=== PATIENT | female | born 1950 | race Caucasian/White ===

== ENCOUNTER 2019-12-25 09:13 | Outpatient (REF) | payer MEDICARE, MEDICAID, SELFPAY ==
--- NOTE | 2019-12-25 09:19 | MM_ITS ---
EXAMINATION: MM DIAGNOSTIC DIGITAL MAMMOGRAPHY, BILATERAL CLINICAL INFORMATION: Right breast calcifications. Left breast screening The lifetime risk of breast cancer based on the Tyrer-Cuzick Model is 5.5%. COMPARISON: Mammography: June 26, 2019 and studies dating back to December 04, 2013 TECHNIQUE: Digital mammography is performed in craniocaudal and mediolateral oblique views along with computer-aided detection (CAD). Additional right breast spot medication views in craniocaudal and 90 degree mediolateral views performed. FINDINGS: The breasts are heterogeneously dense, which may obscure small masses (ACR BI-RADS breast composition Category c). Grouping of calcifications within the central lateral aspect of the right breast appears unchanged. No new suspicious dominant mass appreciated. There are no significant changes from prior study. Results are provided to the patient at time of visit by the technologist. MM/MM diagnostic mammo BI IMPRESSION: There are no significant changes from prior study. ASSESSMENT: BI-RADS 3: Probably Benign RECOMMENDATION: Diagnostic mammography in 6 months for right breast calcifications.. This patient's information was entered into a reminder system with a target due date for their next mammogram.
== END 2019-12-25 09:14 | disposition home or self-care (01) ==
LOC: HO.MAMMO 09:13
PROVIDERS: PCP Internal Medicine; Visit Provider Internal Medicine
DX: R92.1 Mammographic calcification found on diagnostic imaging of breast (principal)
CPT/HCPCS: 77066

== ENCOUNTER → 2019-12-27 09:05 | Outpatient (BNVA) | payer MEDICARE, MEDICAID, SELFPAY | PROVIDERS: PCP Internal Medicine; Referring Provider Internal Medicine; Visit Provider Obstetrics & Gynecology | DX: Z76.89 Persons encountering health services in other specified circumstances (principal) ==

== ENCOUNTER → 2020-01-25 09:13 | Outpatient (BNVA) | payer MEDICARE, MEDICAID, SELFPAY | PROVIDERS: PCP Internal Medicine; Visit Provider Student in an Organized Health Care Education/Training Program | DX: M81.0 Age-related osteoporosis without current pathological fracture (principal) | CPT/HCPCS: 96402 ==

== ENCOUNTER 2020-05-09 08:19 | Outpatient (REF) | payer MEDICARE, MEDICAID, SELFPAY ==
--- NOTE | ~2020-05-09 | XR_ITS ---
EXAMINATION: RIGHT KNEE. LEFT KNEE. RIGHT FEMUR. LEFT FEMUR. CLINICAL INFORMATION: Age-related osteoporosis without current pathological fracture. COMPARISON: None. TECHNIQUE: AP and lateral views of both femurs. [place] and lateral views of both knees. FINDINGS: Right Femur: There is no evidence of acute fracture or dislocation of the right femur. No destructive bony lesions are seen. Right hip joint spaces maintained. Right Knee: There is no evidence of acute fracture or dislocation of the right knee. Right knee joint spaces are maintained. No effusion. Mild spurring patellofemoral joint is seen. Small spur site of insertion of the quadriceps tendon on the patella. Left Femur: There is no evidence of acute fracture or dislocation of the left femur. No destructive bony lesions identified. Left hip joint space is maintained. Left Knee: There is no evidence of acute fracture or dislocation of the left knee. Joint space is maintained. No effusion. XR/XR femur RT 2V IMPRESSION: No significant destructive or degenerative abnormality of either femur or either knee.
--- NOTE | ~2020-05-09 | XR_ITS ---
EXAMINATION: RIGHT KNEE. LEFT KNEE. RIGHT FEMUR. LEFT FEMUR. CLINICAL INFORMATION: Age-related osteoporosis without current pathological fracture. COMPARISON: None. TECHNIQUE: AP and lateral views of both femurs. [place] and lateral views of both knees. FINDINGS: Right Femur: There is no evidence of acute fracture or dislocation of the right femur. No destructive bony lesions are seen. Right hip joint spaces maintained. Right Knee: There is no evidence of acute fracture or dislocation of the right knee. Right knee joint spaces are maintained. No effusion. Mild spurring patellofemoral joint is seen. Small spur site of insertion of the quadriceps tendon on the patella. Left Femur: There is no evidence of acute fracture or dislocation of the left femur. No destructive bony lesions identified. Left hip joint space is maintained. Left Knee: There is no evidence of acute fracture or dislocation of the left knee. Joint space is maintained. No effusion. XR/XR knee LT 3V IMPRESSION: No significant destructive or degenerative abnormality of either femur or either knee.
--- NOTE | ~2020-05-09 | XR_ITS ---
EXAMINATION: RIGHT KNEE. LEFT KNEE. RIGHT FEMUR. LEFT FEMUR. CLINICAL INFORMATION: Age-related osteoporosis without current pathological fracture. COMPARISON: None. TECHNIQUE: AP and lateral views of both femurs. [place] and lateral views of both knees. FINDINGS: Right Femur: There is no evidence of acute fracture or dislocation of the right femur. No destructive bony lesions are seen. Right hip joint spaces maintained. Right Knee: There is no evidence of acute fracture or dislocation of the right knee. Right knee joint spaces are maintained. No effusion. Mild spurring patellofemoral joint is seen. Small spur site of insertion of the quadriceps tendon on the patella. Left Femur: There is no evidence of acute fracture or dislocation of the left femur. No destructive bony lesions identified. Left hip joint space is maintained. Left Knee: There is no evidence of acute fracture or dislocation of the left knee. Joint space is maintained. No effusion. XR/XR knee RT 3V IMPRESSION: No significant destructive or degenerative abnormality of either femur or either knee.
--- NOTE | ~2020-05-09 | XR_ITS ---
EXAMINATION: RIGHT KNEE. LEFT KNEE. RIGHT FEMUR. LEFT FEMUR. CLINICAL INFORMATION: Age-related osteoporosis without current pathological fracture. COMPARISON: None. TECHNIQUE: AP and lateral views of both femurs. [place] and lateral views of both knees. FINDINGS: Right Femur: There is no evidence of acute fracture or dislocation of the right femur. No destructive bony lesions are seen. Right hip joint spaces maintained. Right Knee: There is no evidence of acute fracture or dislocation of the right knee. Right knee joint spaces are maintained. No effusion. Mild spurring patellofemoral joint is seen. Small spur site of insertion of the quadriceps tendon on the patella. Left Femur: There is no evidence of acute fracture or dislocation of the left femur. No destructive bony lesions identified. Left hip joint space is maintained. Left Knee: There is no evidence of acute fracture or dislocation of the left knee. Joint space is maintained. No effusion. XR/XR femur LT 2V IMPRESSION: No significant destructive or degenerative abnormality of either femur or either knee.
== END 2020-05-09 08:20 | disposition home or self-care (01) ==
LOC: HO.XRAY 08:19
PROVIDERS: PCP Internal Medicine; Visit Provider Student in an Organized Health Care Education/Training Program
DX: M81.0 Age-related osteoporosis without current pathological fracture (principal)
CPT/HCPCS: 73552; 73562

== ENCOUNTER 2020-06-07 07:29 | Outpatient (REF) | payer MEDICARE, MEDICAID, SELFPAY ==
[2020-06-07 09:44] LABS: Alanine Aminotransferase 17 U/L (0-31); Albumin Level 4.6 g/dL (3.5-5.0); Alkaline Phosphatase 59 U/L (39-117); Anion Gap 15 (12-20); Aspartate Amino Transferase 25 U/L (5-31); Blood Urea Nitrogen 10 mg/dL (9-16); C Reactive Protein 0.05 mg/dL (< or = 0.50); Calcium 9.6 mg/dL (8.4-10.2); Carbon Dioxide 26 mmol/L (22-29); Chloride 104 mmol/L (96-108); Estimated Glomerular Filt Rate > 60; Glucose Random 86 mg/dL (60-115); Potassium 4.6 mmol/L (3.3-5.1); Sodium 140 mmol/L (135-145); Total Protein 7.6 g/dL (6.5-8.0)
[2020-06-07 10:07] LABS: Erythrocyte Sedimentation Rate 10 MM/HR (0-20)
[2020-06-12 20:57] LABS: Vitamin D 25-OH, D2 7 ng/mL; Vitamin D 25-OH, D3 47 ng/mL; Vitamin D 25-OH, Total 54 ng/mL (30-100)
== END 2020-06-07 07:30 | disposition home or self-care (01) ==
LOC: HO.LAB 07:29
PROVIDERS: PCP Internal Medicine; Visit Provider Student in an Organized Health Care Education/Training Program
DX: M81.0 Age-related osteoporosis without current pathological fracture (principal); Z79.899 Other long term (current) drug therapy
CPT/HCPCS: 36415; 80053; 82306; 85652; 86140; 99212

== ENCOUNTER 2020-06-18 10:30 | Outpatient (REF) | payer MEDICARE, MEDICAID, SELFPAY ==
--- NOTE | ~2020-06-18 | MM_ITS ---
EXAMINATION: MM DIAGNOSTIC DIGITAL BREAST TOMOSYNTHESIS, RIGHT CLINICAL INFORMATION: Probable benign calcifications central 8:30 o'clock right breast for follow-up surveillance. No known family history breast cancer. TC score 4%. COMPARISON: Mammography: 12/25/2019, 06/26/2019, 12/26/2018, 12/22/2018 (BI-RADS 0), 12/13/2017. TECHNIQUE: Digital breast tomosynthesis is performed in both the craniocaudal and mediolateral oblique views along with computer-aided detection (CAD). Synthesized 2D images are generated from the tomosynthesis. Additional magnification views are obtained in the CC and ML projections. FINDINGS: The breasts are heterogeneously dense, which may obscure small masses (ACR BI-RADS breast composition Category c). Parenchymal pattern is similar to prior exams. There is no developing density or interval mass or architectural abnormality. The calcifications for follow-up central 8:30 o'clock position mid depth are stable from prior diagnostic exams. Calcifications will be reassessed again with magnification views at time of annual bilateral mammography to conclude long-term surveillance. Results are provided to the patient at time of visit by the technologist. MM/MM tomosynthesis diagnostic RT IMPRESSION: The probable benign calcifications mid right breast are stable from prior diagnostic exams. ASSESSMENT: BI-RADS 3: Probably Benign RECOMMENDATION: Diagnostic mammography at time of bilateral annual exam, due in 6 months. This patient's information was entered into a reminder system with a target due date for their next mammogram.
== END 2020-06-18 10:31 | disposition home or self-care (01) ==
LOC: HO.MAMMO 10:30
PROVIDERS: Visit Provider Internal Medicine
DX: R92.1 Mammographic calcification found on diagnostic imaging of breast (principal)
CPT/HCPCS: 77061; 77065

== ENCOUNTER → 2020-07-25 08:28 | Outpatient (BNVA) | payer MEDICARE, MEDICAID, SELFPAY | PROVIDERS: PCP Internal Medicine; Visit Provider Student in an Organized Health Care Education/Training Program | DX: M81.0 Age-related osteoporosis without current pathological fracture (principal) | CPT/HCPCS: 96372 ==

== ENCOUNTER 2020-10-02 06:12 | Outpatient (REF) | payer MEDICARE, MEDICAID, SELFPAY ==
[2020-10-02 07:06] LABS: MANUAL DIFF FLAG NO
[2020-10-02 07:15] LABS: Basophils Absolute Auto 0.1 X10*3/uL (0.0-0.2); Basophils Percent Auto 0.9 % (0-2); Eosinophils Absolute Auto 0.2 X10*3/uL (0.0-0.4); Eosinophils Percent Auto 2.7 % (0-4); Hematocrit 38.1 % (37-47); Hemoglobin 12.5 g/dl (12.0-16.0); Imm Gran Abs Auto 0.02 X10*3/uL (0.00-0.03); Imm Gran Pct Auto 0.3 % (0.0-0.4); Lymphocytes Absolute Auto 1.3 X10*3/uL (1.2-4.9); Lymphocytes Percent Auto 22.5 % (20-40); Mean Corpuscular HGB Conc 32.8 g/dl (31.0-35.0); Mean Corpuscular Hemoglobin 31.6 pg (27.0-33.0); Mean Corpuscular Volume 96.5 fL (80-98); Monocytes Absolute Auto 0.6 X10*3/uL (0.1-1.2); Monocytes Percent Auto 10.8 % (2-11); Neutrophils Absolute Auto 3.7 X10*3/uL (2.0-8.3); Neutrophils Percent Auto 62.8 % (45-73); Platelet Count 247 X10*3/uL (160-400); Red Blood Count 3.95 X10*6/uL (4.20-5.50); Red Cell Distribution Width 12.6 % (11.0-16.0); White Blood Count 5.8 X10*3/uL (4.8-10.8)
[2020-10-02 07:39] LABS: Alanine Aminotransferase 18 U/L (0-31); Albumin Level 4.7 g/dL (3.5-5.0); Alkaline Phosphatase 57 U/L (39-117); Anion Gap 11 (12-20); Aspartate Amino Transferase 24 U/L (5-31); Bilirubin Total 0.8 mg/dL (0.0-1.0); Blood Urea Nitrogen 9 mg/dL (9-16); Calcium 9.6 mg/dL (8.4-10.2); Carbon Dioxide 29 mmol/L (22-29); Chloride 102 mmol/L (96-108); Cholesterol 159 mg/dL; Estimated Glomerular Filt Rate > 60; Glucose Fasting 87 mg/dL (60-99); HDL Cholesterol 71 mg/dL; LDL Cholesterol Calculated 70 mg/dl; Potassium 4.1 mmol/L (3.3-5.1); Sodium 138 mmol/L (135-145); Total Protein 7.6 g/dL (6.5-8.0); Triglycerides 91 mg/dL
[2020-10-02 09:01] LABS: Glucose Urine UA NEG (NEG); Leukocyte Esterase Urine NEG (NEG); Nitrite Urine NEG (NEG); PH 6.5 (5.0-8.0); Specific Gravity - Urine <= 1.005 (1.005-1.025); UACC Culture Trigger NO; Urine Blood TRACE (NEG); Urine Ketones NEG (NEG); Urine Protein NEG (NEG-TRACE)
[2020-10-02 09:04] LABS: Appearance Urine CLEAR; Color Urine STRAW
[2020-10-02 09:15] LABS: RBC Urine 0-2 /HPF (0); Squamous Epithelial Cell Urine TRACE /LPF; WBC Urine 0 /HPF (0-4)
== END 2020-10-02 06:13 | disposition home or self-care (01) ==
LOC: HO.LAB 06:12
PROVIDERS: PCP Internal Medicine; Visit Provider Internal Medicine
DX: E78.00 Pure hypercholesterolemia, unspecified (principal); K57.90 Diverticulosis of intestine, part unspecified, without perforation or abscess without bleeding; N32.81 Overactive bladder
CPT/HCPCS: 36415; 80053; 80061; 81001; 81003; 85025; 87086

== ENCOUNTER → 2020-11-21 10:40 | Outpatient (BNVA) | payer MEDICARE, MEDICAID, SELFPAY | DX: R32 Unspecified urinary incontinence (principal) | CPT/HCPCS: 51798; 99212 ==

== ENCOUNTER 2020-12-04 08:41 | Outpatient (REF) | payer MEDICARE, MEDICAID, SELFPAY ==
[2020-12-04 10:49] LABS: Alanine Aminotransferase 20 U/L (0-31); Albumin Level 4.8 g/dL (3.5-5.0); Alkaline Phosphatase 62 U/L (39-117); Anion Gap 16 (12-20); Aspartate Amino Transferase 25 U/L (5-31); Bilirubin Total 0.8 mg/dL (0.0-1.0); Blood Urea Nitrogen 10 mg/dL (9-16); Carbon Dioxide 25 mmol/L (22-29); Chloride 102 mmol/L (96-108); Estimated Glomerular Filt Rate > 60; Glucose Random 85 mg/dL (60-115); Potassium 4.4 mmol/L (3.3-5.1); Sodium 139 mmol/L (135-145); Total Protein 7.9 g/dL (6.5-8.0)
[2020-12-04 11:05] LABS: Calcium 10.7 mg/dL (8.4-10.2); Vitamin D 25-OH Total 45.8 ng/mL (>30)
== END 2020-12-04 08:42 | disposition home or self-care (01) ==
LOC: HO.LAB 08:41
PROVIDERS: PCP Internal Medicine; Visit Provider Nurse Practitioner Family
DX: M81.0 Age-related osteoporosis without current pathological fracture (principal)
CPT/HCPCS: 36415; 80053; 82306; 99212

== ENCOUNTER 2020-12-09 09:50 | Outpatient (REF) | payer MEDICARE, MEDICAID, SELFPAY ==
[2020-12-10 14:31] LABS: Calcium (PTHI) 9.7 mg/dL (8.6-10.4); PTHI 49 pg/mL (14-64)
== END 2020-12-09 09:51 | disposition home or self-care (01) ==
LOC: HO.LAB 09:50
PROVIDERS: Visit Provider Nurse Practitioner Family
DX: M81.0 Age-related osteoporosis without current pathological fracture (principal)
CPT/HCPCS: 36415; 82310; 83970

== ENCOUNTER 2020-12-23 08:38 | Outpatient (REF) | payer MEDICARE, MEDICAID, SELFPAY ==
--- NOTE | ~2020-12-23 | MM_ITS ---
EXAMINATION: MM DIAGNOSTIC DIGITAL BREAST TOMOSYNTHESIS, BILATERAL CLINICAL INFORMATION: Due for yearly. Also follow-up probable benign calcifications central 8:30 right breast, initially noted on mammography 12/22/2018. The lifetime risk of breast cancer based on the Tyrer-Cuzick Model is 6%. COMPARISON: Mammography: 06/18/2020 and prior exams dating back to 12/04/2013 TECHNIQUE: Digital breast tomosynthesis is performed in both the craniocaudal and mediolateral oblique views along with computer-aided detection (CAD). Synthesized 2D images are generated from the tomosynthesis. Additional magnification right CC and magnification right ML views are provided. FINDINGS: The breasts are heterogeneously dense, which may obscure small masses (ACR BI-RADS breast composition Category c). Parenchymal pattern is similar to prior studies. There are scattered stable asymmetries and minor shifting fibroglandular densities from year to year. No developing density or interval mass or architectural abnormality. The calcifications for follow-up central mid outer right breast are without significant change from prior diagnostic exams and now considered to be benign. Results are provided to the patient at time of visit by the technologist. MM/MM tomosynthesis diagnostic BI IMPRESSION: 1. No mammographic evidence of malignancy. 2. Right breast calcifications without significant changes from prior diagnostic exams and now considered to be benign. ASSESSMENT: BI-RADS 2: Benign RECOMMENDATION: Routine annual mammography screening. This patient's information was entered into a reminder system with a target due date for their next mammogram.
== END 2020-12-23 08:39 | disposition home or self-care (01) ==
LOC: HO.MAMMO 08:38
PROVIDERS: Visit Provider Internal Medicine
DX: R92.1 Mammographic calcification found on diagnostic imaging of breast (principal)
CPT/HCPCS: 77062; 77066

== ENCOUNTER → 2020-12-31 08:39 | Outpatient (BNVA) | payer MEDICARE, MEDICAID, SELFPAY | PROVIDERS: PCP Internal Medicine; Visit Provider Obstetrics & Gynecology ==

== ENCOUNTER → 2021-01-24 08:48 | Outpatient (BNVA) | payer MEDICARE, MEDICAID, SELFPAY | PROVIDERS: PCP Internal Medicine; Visit Provider Student in an Organized Health Care Education/Training Program | DX: M81.0 Age-related osteoporosis without current pathological fracture (principal) | CPT/HCPCS: 96372 ==

== ENCOUNTER → 2021-05-22 08:57 | Outpatient (BNVA) | payer MEDICARE, MEDICAID, SELFPAY | PROVIDERS: PCP Internal Medicine | DX: R32 Unspecified urinary incontinence (principal) | CPT/HCPCS: 51798; 99212 ==

== ENCOUNTER 2021-06-03 07:42 | Outpatient (REF) | payer MEDICARE, MEDICAID, SELFPAY ==
--- NOTE | ~2021-06-03 | MM_ITS ---
EXAMINATION: BONE DENSITOMETRY CLINICAL INDICATION: Osteoporosis. COMPARISON: Previous BD dated 12/22/2018 and baseline BD dated 12/13/2006. TECHNIQUE: Using a [employer] DXA System (software version: 13.1) manufactured by [employer], dual-energy x-ray absorptiometry was performed of the lumbar spine and left hip. The images are of good technical quality. Summary results are attached. FINDINGS: AP SPINE L1-L4: Current: BMD 0.847 g/cm2, Z-score -0.7, T-score -2.8, osteoporosis, 6.3% increase from previous, 9.5% decrease from baseline (<5% change is not significant). Prior: BMD 0.797 g/cm2. Baseline: BMD 0.936 g/cm2. LEFT FEMUR, NECK: Current: BMD 0.649 g/cm2, Z-score -0.9, T-score -2.8, osteoporosis. Prior: BMD 0.579 g/cm2. Baseline: BMD 0.714 g/cm2. LEFT FEMUR, TOTAL: Current: BMD 0.654 g/cm2, Z-score -1.1, T-score -2.8, osteoporosis, 5.5% increase from previous, 12.9% decrease from baseline (<5% change is not significant). Prior: BMD 0.620 g/cm2. Baseline: BMD 0.751 g/cm2. IDENTIFIED RISK FACTORS: Menopause, osteoporosis, renal. HISTORY OF FRACTURE: None listed. MEDICATIONS: Calcium, vitamin D, Prolia. MM/XR DEXA axial skeleton IMPRESSION: 1. DIAGNOSIS: Osteoporosis based on the lowest T-score value of -2.8 in the lumbar spine, femur neck, and total femur applying World Health Organization criteria. 2. 10-YEAR FRACTURE RISK PREDICTION, FRAX: According to the guidelines, FRAX calculation should only be performed on patients in the osteopenia bone density category. Therefore, FRAX was not performed on this patient. 3. Treatment Recommendations: NOF guidelines recommend consideration for treatment in postmenopausal women and men age 50 and older presenting with the following: -A hip or vertebral (clinical or morphometric) fracture. -T-score less than or equal to -2.5 at the femoral neck or spine after appropriate evaluation to exclude secondary causes. -Low bone mass at the hip or spine and a 10-year fracture probability by FRAX of greater than or equal to 3% for hip fracture or greater than or equal to 20% for major osteoporotic fracture based on the [place] adapted WHO algorithm. 4. Other Recommendations: All treatment decisions require clinical judgment and consideration of individual patient factors, including patient preferences, comorbidities, previous drug use, risk factors not captured in the FRAX model (e.g. frailty, falls, vitamin D deficiency, increased bone turnover, interval significant decline in bone density) and possible under or overestimation of fracture risk by FRAX. Additional medical evaluation for secondary cause of low bone mineral density may be appropriate. FUTURE SCAN RECOMMENDATION: People with diagnosed cases of osteoporosis or at high risk for fracture should have regular bone mineral density tests. For patients eligible for Medicare, routine testing is allowed once every 2 years. The testing frequency can be increased to one year for patients who have rapidly progressing disease, those who are receiving or discontinuing medical therapy to restore bone mass, or have additional risk factors.
== END 2021-06-03 07:43 | disposition home or self-care (01) ==
LOC: HO.MAMMO 07:42
PROVIDERS: PCP Internal Medicine; Visit Provider Nurse Practitioner Family
DX: Z13.820 Encounter for screening for osteoporosis (principal); M81.0 Age-related osteoporosis without current pathological fracture; Z78.0 Asymptomatic menopausal state
CPT/HCPCS: 77080

== ENCOUNTER → 2021-06-09 08:44 | Outpatient (BNVA) | payer MEDICARE, MEDICAID, SELFPAY | PROVIDERS: PCP Internal Medicine; Visit Provider Nurse Practitioner Family | DX: M81.0 Age-related osteoporosis without current pathological fracture (principal) | CPT/HCPCS: 99212 ==

== ENCOUNTER 2021-06-16 06:12 | Outpatient (REF) | payer MEDICARE, MEDICAID, SELFPAY ==
[2021-06-16 08:07] LABS: Alanine Aminotransferase 14 U/L (0-31); Albumin Level 4.5 g/dL (3.5-5.0); Alkaline Phosphatase 61 U/L (39-117); Anion Gap 12 (12-20); Aspartate Amino Transferase 22 U/L (5-31); Bilirubin Total 1.1 mg/dL (0.0-1.0); Blood Urea Nitrogen 11 mg/dL (9-16); Calcium 9.8 mg/dL (8.4-10.2); Carbon Dioxide 28 mmol/L (22-29); Chloride 105 mmol/L (96-108); Estimated Glomerular Filt Rate > 60; Glucose Random 87 mg/dL (60-115); Potassium 4.3 mmol/L (3.3-5.1); Sodium 141 mmol/L (135-145); Total Protein 7.7 g/dL (6.5-8.0)
[2021-06-16 08:34] LABS: Vitamin D 25-OH Total 42.2 ng/mL (>30)
== END 2021-06-16 06:13 | disposition home or self-care (01) ==
LOC: HO.LAB 06:12
PROVIDERS: PCP Internal Medicine; Visit Provider Nurse Practitioner Family
DX: M81.0 Age-related osteoporosis without current pathological fracture (principal)
CPT/HCPCS: 36415; 80053; 82306

== ENCOUNTER → 2021-07-28 08:40 | Outpatient (BNVA) | payer MEDICARE, MEDICAID, SELFPAY | PROVIDERS: PCP Internal Medicine; Visit Provider Nurse Practitioner Family | DX: M81.0 Age-related osteoporosis without current pathological fracture (principal) | CPT/HCPCS: 96372 ==

== ENCOUNTER 2021-11-05 06:03 | Outpatient (REF) | payer MEDICARE, MEDICAID, SELFPAY ==
[2021-11-05 06:24] LABS: MANUAL DIFF FLAG NO
[2021-11-05 07:42] LABS: Basophils Percent Auto 0.6 % (0-2); Eosinophils Absolute Auto 0.1 X10*3/uL (0.0-0.4); Eosinophils Percent Auto 1.9 % (0-4); Hematocrit 38.5 % (37.0-47.0); Hemoglobin 12.8 g/dl (12.0-16.0); Imm Gran Abs Auto 0.02 X10*3/uL (0.00-0.03); Imm Gran Pct Auto 0.3 % (0.0-0.4); Lymphocytes Absolute Auto 1.6 X10*3/uL (1.2-4.9); Lymphocytes Percent Auto 25.2 % (20-40); Mean Corpuscular HGB Conc 33.2 g/dl (31.0-35.0); Mean Corpuscular Hemoglobin 31.4 pg (27.0-33.0); Mean Corpuscular Volume 94.6 fL (80.0-98.0); Mean Platelet Volume 10.1 fL (9.4-12.3); Monocytes Absolute Auto 0.6 X10*3/uL (0.1-1.2); Monocytes Percent Auto 10.1 % (2-11); Neutrophils Absolute Auto 3.9 x10*3/uL (2.0-8.3); Neutrophils Percent Auto 61.9 % (45-73); Platelet Count 248 X10*3/uL (160-400); Red Blood Count 4.07 X10*6/uL (4.20-5.50); Red Cell Distribution Width 12.9 % (11.0-16.0); White Blood Count 6.4 X10*3/uL (4.8-10.8)
[2021-11-05 08:04] LABS: Alanine Aminotransferase 19 U/L (0-31); Albumin Level 4.6 g/dL (3.5-5.0); Alkaline Phosphatase 64 U/L (39-117); Anion Gap 16 (12-20); Aspartate Amino Transferase 23 U/L (5-31); Blood Urea Nitrogen 12 mg/dL (9-16); Calcium 9.8 mg/dL (8.4-10.2); Carbon Dioxide 25 mmol/L (22-29); Chloride 103 mmol/L (96-108); Cholesterol 173 mg/dL; Estimated Glomerular Filt Rate > 60; Glucose Fasting 84 mg/dL (60-99); HDL Cholesterol 69 mg/dL; LDL Cholesterol Calculated 87 mg/dl; Potassium 4.4 mmol/L (3.3-5.1); Sodium 140 mmol/L (135-145); Total Protein 7.6 g/dL (6.5-8.0); Triglycerides 87 mg/dL
[2021-11-05 08:16] LABS: Vitamin D 25-OH Total 48.4 ng/mL (>30)
== END 2021-11-05 06:04 | disposition home or self-care (01) ==
LOC: HO.LAB 06:03
PROVIDERS: PCP Internal Medicine; Visit Provider Internal Medicine
DX: E78.00 Pure hypercholesterolemia, unspecified (principal); K57.90 Diverticulosis of intestine, part unspecified, without perforation or abscess without bleeding; M81.0 Age-related osteoporosis without current pathological fracture
CPT/HCPCS: 36415; 80053; 80061; 82306; 85025

== ENCOUNTER → 2021-12-09 09:08 | Outpatient (BNVA) | payer MEDICARE, MEDICAID, SELFPAY | PROVIDERS: PCP Internal Medicine; Visit Provider Nurse Practitioner Family | DX: M81.0 Age-related osteoporosis without current pathological fracture (principal) | CPT/HCPCS: 99212 ==

== ENCOUNTER 2021-12-29 07:47 | Outpatient (REF) | payer MEDICARE, MEDICAID, SELFPAY ==
--- NOTE | ~2021-12-29 | MM_ITS ---
EXAMINATION: MM SCREENING DIGITAL BREAST TOMOSYNTHESIS, BILATERAL CLINICAL INFORMATION: Screening. Asymptomatic. COMPARISON: Mammography: 12/23/2020, 06/18/2020, 12/25/2019, 06/26/2019, 12/26/2018, 12/22/2018 TECHNIQUE: Digital breast tomosynthesis is performed in both the craniocaudal and mediolateral oblique views along with computer-aided detection (CAD). Synthesized 2D images are generated from the tomosynthesis. FINDINGS: The breasts are heterogeneously dense, which may obscure small masses (ACR BI-RADS breast composition Category c). Parenchymal pattern is similar to prior studies and there is no developing density or interval mass or architectural abnormality. No interval suspicious calcifications. The axilla and skin contours are unremarkable. There are no significant changes from prior studies. MM/MM tomosynthesis screening BI IMPRESSION: No mammographic evidence of malignancy. ASSESSMENT: BI-RADS 2: Benign RECOMMENDATION: Routine annual mammography screening. This patient's information was entered into a reminder system with a target due date for their next mammogram.
[2021-12-29 09:38] LABS: Alanine Aminotransferase 19 U/L (0-31); Albumin Level 4.7 g/dL (3.5-5.0); Alkaline Phosphatase 66 U/L (39-117); Anion Gap 14 (12-20); Aspartate Amino Transferase 22 U/L (5-31); Bilirubin Total 0.6 mg/dL (0.0-1.0); Blood Urea Nitrogen 10 mg/dL (9-16); Calcium 9.7 mg/dL (8.4-10.2); Carbon Dioxide 27 mmol/L (22-29); Chloride 105 mmol/L (96-108); Estimated Glomerular Filt Rate > 60; Glucose Random 93 mg/dL (60-115); Potassium 4.3 mmol/L (3.3-5.1); Sodium 142 mmol/L (135-145); Total Protein 7.6 g/dL (6.5-8.0); Vitamin D 25-OH Total 63.5 ng/mL (>30)
== END 2021-12-29 07:48 | disposition home or self-care (01) ==
LOC: HO.MAMMO 07:47
PROVIDERS: Absent Provider Nurse Practitioner Family; PCP Internal Medicine; Visit Provider Internal Medicine
DX: Z12.31 Encounter for screening mammogram for malignant neoplasm of breast (principal); M81.0 Age-related osteoporosis without current pathological fracture
CPT/HCPCS: 36415; 77063; 77067; 80053; 82306

== ENCOUNTER 2022-01-01 08:45 | Outpatient (REF) | payer MEDICARE, MEDICAID, SELFPAY ==
[2022-01-07 21:41] LABS: HPV mRNA E6/E7 rflx Not Detected (Not Detected)
== END 2022-01-01 08:46 | disposition home or self-care (01) ==
LOC: HO.LNP 08:45
PROVIDERS: Visit Provider Obstetrics & Gynecology
DX: Z01.419 Encounter for gynecological examination (general) (routine) without abnormal findings (principal)
CPT/HCPCS: 87624; 88142

== ENCOUNTER → 2022-01-27 08:37 | Outpatient (BNVA) | payer MEDICARE, MEDICAID, SELFPAY | PROVIDERS: PCP Internal Medicine; Referring Provider Internal Medicine; Visit Provider Nurse Practitioner Family | DX: M81.0 Age-related osteoporosis without current pathological fracture (principal); Z79.899 Other long term (current) drug therapy | CPT/HCPCS: 96372 ==

== ENCOUNTER → 2022-05-25 09:06 | Outpatient (BNVA) | payer MEDICARE, MEDICAID, SELFPAY | PROVIDERS: PCP Internal Medicine; Visit Provider Urology | DX: N32.81 Overactive bladder (principal); R35.1 Nocturia; R31.29 Other microscopic hematuria | CPT/HCPCS: 51798; 99212 ==

== ENCOUNTER → 2022-06-09 08:43 | Outpatient (BNVA) | payer MEDICARE, MEDICAID, SELFPAY | PROVIDERS: PCP Internal Medicine; Visit Provider Nurse Practitioner Family | DX: M81.0 Age-related osteoporosis without current pathological fracture (principal) | CPT/HCPCS: 99212 ==

== ENCOUNTER 2022-07-08 06:03 | Outpatient (REF) | payer MEDICARE, MEDICAID, SELFPAY ==
[2022-07-08 08:29] LABS: Anion Gap 12 (12-20); Blood Urea Nitrogen 12 mg/dL (9-16); Calcium 9.9 mg/dL (8.4-10.2); Carbon Dioxide 29 mmol/L (22-29); Chloride 106 mmol/L (96-108); Estimated Glomerular Filt Rate > 60; Glucose Random 90 mg/dL (60-115); Potassium 4.3 mmol/L (3.3-5.1); Sodium 143 mmol/L (135-145)
[2022-07-08 08:35] LABS: Alanine Aminotransferase 18 U/L (0-31); Albumin Level 4.6 g/dL (3.5-5.0); Alkaline Phosphatase 65 U/L (39-117); Anion Gap 11 (12-20); Aspartate Amino Transferase 23 U/L (5-31); Bilirubin Total 1.2 mg/dL (0.0-1.0); Blood Urea Nitrogen 12 mg/dL (9-16); Calcium 9.8 mg/dL (8.4-10.2); Carbon Dioxide 30 mmol/L (22-29); Chloride 105 mmol/L (96-108); Estimated Glomerular Filt Rate > 60; Glucose Random 88 mg/dL (60-115); Potassium 3.9 mmol/L (3.3-5.1); Sodium 142 mmol/L (135-145); Total Protein 7.6 g/dL (6.5-8.0)
[2022-07-08 08:52] LABS: Vitamin D 25-OH Total 52.5 ng/mL (>30)
[2022-07-08 08:55] LABS: Thyroid Stimulating Hormone 1.81 uIU/mL (0.32-4.0); Vitamin B12 522 pg/mL (200-900); Vitamin D 25-OH Total 54.9 ng/mL (>30)
== END 2022-07-08 06:04 | disposition home or self-care (01) ==
LOC: HO.LAB 06:03
PROVIDERS: Absent Provider Internal Medicine; PCP Internal Medicine; Visit Provider Nurse Practitioner Family
DX: R26.81 Unsteadiness on feet (principal); M81.0 Age-related osteoporosis without current pathological fracture; R53.83 Other fatigue
CPT/HCPCS: 36415; 80048; 80053; 82306; 82607; 84439; 84443

== ENCOUNTER → 2022-07-24 08:55 | Outpatient (BNVA) | payer MEDICARE, MEDICAID, SELFPAY | PROVIDERS: PCP Internal Medicine; Visit Provider Urology | DX: R31.29 Other microscopic hematuria (principal); N32.81 Overactive bladder; N39.41 Urge incontinence | CPT/HCPCS: 52000 ==

== ENCOUNTER → 2022-07-28 08:38 | Outpatient (BNVA) | payer MEDICARE, MEDICAID, SELFPAY | PROVIDERS: PCP Internal Medicine; Visit Provider Nurse Practitioner Family | DX: M81.0 Age-related osteoporosis without current pathological fracture (principal) | CPT/HCPCS: 96372; J0897 ==

== ENCOUNTER 2022-10-16 06:01 | Outpatient (REF) | payer MEDICARE, MEDICAID, SELFPAY ==
[2022-10-16 06:12] LABS: MANUAL DIFF FLAG NO
[2022-10-16 07:41] LABS: Basophils Percent Auto 0.7 % (0-2); Eosinophils Absolute Auto 0.1 X10*3/uL (0.0-0.4); Eosinophils Percent Auto 2.1 % (0-4); Hematocrit 38.2 % (37.0-47.0); Hemoglobin 12.7 g/dl (12.0-16.0); Imm Gran Abs Auto 0.02 X10*3/uL (0.00-0.03); Imm Gran Pct Auto 0.3 % (0.0-0.4); Lymphocytes Absolute Auto 1.1 X10*3/uL (1.2-4.9); Lymphocytes Percent Auto 19.9 % (20-40); Mean Corpuscular HGB Conc 33.2 g/dl (31.0-35.0); Mean Corpuscular Hemoglobin 31.7 pg (27.0-33.0); Mean Corpuscular Volume 95.3 fL (80.0-98.0); Mean Platelet Volume 10.6 fL (9.4-12.3); Monocytes Absolute Auto 0.5 X10*3/uL (0.1-1.2); Monocytes Percent Auto 9.1 % (2-11); Neutrophils Absolute Auto 3.9 x10*3/uL (2.0-8.3); Neutrophils Percent Auto 67.9 % (45-73); Platelet Count 239 X10*3/uL (160-400); Red Blood Count 4.01 X10*6/uL (4.20-5.50); Red Cell Distribution Width 12.8 % (11.0-16.0); White Blood Count 5.7 X10*3/uL (4.8-10.8)
[2022-10-16 08:02] LABS: Alanine Aminotransferase 12 U/L (0-31); Albumin Level 4.5 g/dL (3.5-5.0); Alkaline Phosphatase 58 U/L (39-117); Anion Gap 17 (12-20); Aspartate Amino Transferase 20 U/L (5-31); Bilirubin Total 0.8 mg/dL (0.0-1.0); Blood Urea Nitrogen 11 mg/dL (9-16); Calcium 9.9 mg/dL (8.4-10.2); Carbon Dioxide 22 mmol/L (22-29); Chloride 104 mmol/L (96-108); Cholesterol 153 mg/dL (<200); Estimated Glomerular Filt Rate > 60; Glucose Fasting 88 mg/dL (60-99); HDL Cholesterol 72 mg/dL (>40); LDL Cholesterol Calculated 66 mg/dL (<100); Potassium 3.5 mmol/L (3.3-5.1); Sodium 139 mmol/L (135-145); Total Protein 7.5 g/dL (6.5-8.0); Triglycerides 75 mg/dL (<150)
== END 2022-10-16 06:02 | disposition home or self-care (01) ==
LOC: HO.LAB 06:01
PROVIDERS: PCP Internal Medicine; Visit Provider Internal Medicine
DX: E78.00 Pure hypercholesterolemia, unspecified (principal); M81.0 Age-related osteoporosis without current pathological fracture; K57.90 Diverticulosis of intestine, part unspecified, without perforation or abscess without bleeding
CPT/HCPCS: 36415; 80053; 80061; 85025

== ENCOUNTER 2023-01-01 08:07 | Outpatient (REF) | payer MEDICARE, MEDICAID, SELFPAY | END 2023-01-01 08:08 | disposition home or self-care (01) | LOC: HO.MAMMO 08:07 | PROVIDERS: PCP Internal Medicine; Visit Provider Internal Medicine | DX: Z12.31 Encounter for screening mammogram for malignant neoplasm of breast (principal) | CPT/HCPCS: 77063; 77067 ==

== ENCOUNTER → 2023-01-01 08:30 | Outpatient (BNV) | payer MEDICARE, MEDICAID, SELFPAY | PROVIDERS: PCP Internal Medicine; Visit Provider Radiology Diagnostic Radiology | DX: Z12.31 Encounter for screening mammogram for malignant neoplasm of breast (principal) | CPT/HCPCS: 77063; 77067 ==

== ENCOUNTER 2023-01-21 06:04 | Outpatient (REF) | payer MEDICARE, MEDICAID, SELFPAY ==
[2023-01-21 06:28] LABS: MANUAL DIFF FLAG NO
[2023-01-21 07:44] LABS: Basophils Absolute Auto 0.1 X10*3/uL (0.0-0.2); Basophils Percent Auto 0.9 % (0-2); Eosinophils Absolute Auto 0.1 X10*3/uL (0.0-0.4); Eosinophils Percent Auto 1.6 % (0-4); Hematocrit 39.1 % (37.0-47.0); Hemoglobin 12.9 g/dl (12.0-16.0); Imm Gran Abs Auto 0.02 X10*3/uL (0.00-0.03); Imm Gran Pct Auto 0.4 % (0.0-0.4); Lymphocytes Absolute Auto 1.3 X10*3/uL (1.2-4.9); Lymphocytes Percent Auto 22.7 % (20-40); Mean Corpuscular Hemoglobin 31.9 pg (27.0-33.0); Mean Corpuscular Volume 96.5 fL (80.0-98.0); Mean Platelet Volume 10.5 fL (9.4-12.3); Monocytes Absolute Auto 0.5 X10*3/uL (0.1-1.2); Monocytes Percent Auto 8.8 % (2-11); Neutrophils Absolute Auto 3.7 x10*3/uL (2.0-8.3); Neutrophils Percent Auto 65.6 % (45-73); Platelet Count 249 X10*3/uL (160-400); Red Blood Count 4.05 X10*6/uL (4.20-5.50); Red Cell Distribution Width 12.9 % (11.0-16.0); White Blood Count 5.7 X10*3/uL (4.8-10.8)
[2023-01-21 08:03] LABS: Alanine Aminotransferase 18 U/L (0-31); Albumin Level 4.6 g/dL (3.5-5.0); Alkaline Phosphatase 60 U/L (39-117); Anion Gap 11 (12-20); Aspartate Amino Transferase 24 U/L (5-31); Bilirubin Total 0.9 mg/dL (0.0-1.0); Blood Urea Nitrogen 10 mg/dL (9-16); Calcium 9.8 mg/dL (8.4-10.2); Carbon Dioxide 29 mmol/L (22-29); Chloride 106 mmol/L (96-108); Estimated Glomerular Filt Rate > 60; Glucose Random 89 mg/dL (60-115); Potassium 3.7 mmol/L (3.3-5.1); Sodium 142 mmol/L (135-145); Total Protein 7.9 g/dL (6.5-8.0)
[2023-01-26 18:35] LABS: Vitamin D 25-OH, D2 8 ng/mL; Vitamin D 25-OH, D3 40 ng/mL; Vitamin D 25-OH, Total 48 ng/mL (30-100)
== END 2023-01-21 06:05 | disposition home or self-care (01) ==
LOC: HO.LAB 06:04
PROVIDERS: PCP Internal Medicine; Visit Provider Student in an Organized Health Care Education/Training Program
DX: Z13.21 Encounter for screening for nutritional disorder (principal); M81.0 Age-related osteoporosis without current pathological fracture
CPT/HCPCS: 36415; 80053; 82306; 85025

== ENCOUNTER 2023-01-27 09:06 | Outpatient (AMB) | payer MEDICARE, MEDICAID, SELFPAY ==
--- NOTE | 2023-01-27 09:15 | MHC.OFFVIS ---
Intake Vital Signs 01/27/23 09:24 Height 5 ft 3 in Weight 107 lb 5.842 oz BMI 19.0 BP 122/82 Blood Pressure Location Lt brachial Position Sitting Pulse 84 Pulse Source Pulse Oximeter Temp 98.1 F Temp Source Skin Pulse Oximetry (%) 98 Oxygen Delivery Method Room Air Intake Visit Reasons: Osteoporosis follow up /Prolia inj Intake Note: Patient last seen 06/09/22, presents today for follow up and Prolia injection. Last Prolia 07/28/22. Nuclear Engineering Technician Required: No Accompanied by: Self / Same As Patient Allergies Latex Gloves Allergy (Intermediate, Uncoded 01/27/23 09:15) edema Medication List - Last Reconciled 01/27/23 by Rashaad Wadsworth MD atorvastatin 10 mg PO DAILY C,E,zinc,copper [id number] 250-5-1 mg (Ocuvite Adult 50 Plus) 1 cap PO DAILY calcium carbonate 600 mg PO DAILY cholecalciferol (vitamin D3) 25 mcg PO DAILY coenzyme Q10 (Ultra CoQ10) 75 mg PO DAILY denosumab 60 mg subcut [id number]-lycopen-lutein 0.4 mg-300 mcg- 250 mcg (Centrum Silver) 1 tab PO DAILY HPI HPI Comments History of Present Illness Details 72-year-old female with osteoporosis returns for follow-up and Prolia injection. Last Prolia injection was 07/2022. Patient is doing well overall. Has not had any recent falls. She walks for 30 minutes every other day. Feels a little unsteady when she walks on bumpy surfaces. Takes calcium and vitamin D [facility] Medical History Urinary incontinence Osteoporosis Family History Sister Ovarian cancer Social History Alcohol intake: never Patient Tobacco Use Status: Never used Tobacco Sexual orientation: Straight/Heterosexual Gender identity: Female Female Reproductive History Menstrual Age of Menarche: 12 Review of Systems [employer]c Denies back pain and Denies arthralgias Physical Exam Vital Signs: Last Vital Signs Temp 98.1 F 01/27/23 09:24 Pulse 84 01/27/23 09:24 BP 122/82 01/27/23 09:24 Pulse Ox 98 01/27/23 09:24 Oxygen Delivery Method Room Air 01/27/23 09:24 BMI result Body Mass Index 19.0 Const General: cooperative and healthy appearing Nutritional Appearance: thin Orientation/consciousness: patient oriented x3 Limitations: no limitations HEENT Head: Yes normocephalic and Yes atraumatic Mouth: moist mucous membranes Resp Effort & Inspection: normal respiratory effort and able to speak in complete sentences Auscultation: clear to auscultation bilaterally GI Inspection: No distended Palpation (GI): Soft to palpation and nontender Skin General skin exam: no rashes or lesions noted Neuro General: patient oriented x3 Extrem Other: Osteoarthritic changes of both hands with no active synovitis Results Reviewed Results Reviewed: Laboratory Tests Date of Service: 06/03/21 Procedure(s): XR DEXA axial skeleton Accession Number(s): [id number] EXAMINATION: BONE DENSITOMETRY CLINICAL INDICATION: Osteoporosis. COMPARISON: Previous BD dated 12/22/2018 and baseline BD dated 12/13/2006. TECHNIQUE: Using a [employer] DXA System (software version: 13.1) manufactured by [employer], dual-energy x-ray absorptiometry was performed of the lumbar spine and left hip. The images are of good technical quality. Summary results are attached. FINDINGS: AP SPINE L1-L4: Current: BMD 0.847 g/cm2, Z-score -0.7, T-score -2.8, osteoporosis, 6.3% increase from previous, 9.5% decrease from baseline (<5% change is not significant). Prior: BMD 0.797 g/cm2. Baseline: BMD 0.936 g/cm2. LEFT FEMUR, NECK: Current: BMD 0.649 g/cm2, Z-score -0.9, T-score -2.8, osteoporosis. Prior: BMD 0.579 g/cm2. Baseline: BMD 0.714 g/cm2. LEFT FEMUR, TOTAL: Current: BMD 0.654 g/cm2, Z-score -1.1, T-score -2.8, osteoporosis, 5.5% increase from previous, 12.9% decrease from baseline (<5% change is not significant). Prior: BMD 0.620 g/cm2. Baseline: BMD 0.751 g/cm2. IDENTIFIED RISK FACTORS: Menopause, osteoporosis, renal. HISTORY OF FRACTURE: None listed. MEDICATIONS: Calcium, vitamin D, Prolia. MM/XR DEXA axial skeleton IMPRESSION: 1. DIAGNOSIS: Osteoporosis based on the lowest T-score value of -2.8 in the lumbar spine, femur neck, and total femur applying World Health Organization criteria.? Assessment & Plan Assessment & Plan (1) Osteoporosis: Comment: Raloxifene: 2017-01/2019 Prolia: December 2018- present Code(s): M81.0 - Age-related osteoporosis without current pathological fracture Qualifiers: Osteoporosis type: age-related Presence of current pathological fracture: without current pathological fracture Qualified Code(s): M81.0 - Age-related osteoporosis without current pathological fracture Plan: ?DEXA (12/2018) T score -3.3 in femoral neck. On Prolia since January 2019. Previously on raloxifene but had worsening DEXA scan so was switched to Prolia. DEXA 06/06 with improved T-score -2.8 in the lumbar spine and greater than 5% increase from previous. Patient will lateral Prolia injection in the office today. Of note patient had dental procedures such as crowns while on Prolia with no untoward consequences Vitamin-D level at target. Continue current calcium and vitamin-D dose We discussed weight-bearing exercises for osteoporosis. Labs before next visit in 6 months. Prolia injection in the same day ? Plan I spent 27 minutes reviewing patient's chart, evaluating patient, ordering diagnostic workup, counseling patient and documenting in the chart Orders: Orders Basic Metabolic Panel 6 Months M81.0 - Age-related osteoporosis without current pathological fracture XR DEXA axial skeleton 06/16/23 M81.0 - Age-related osteoporosis without current pathological fracture Vitamin D 25-OH (D2 and D3) 6 Months Z13.21 - Encounter for screening for nutritional disorder Coding Level of Care Code Est Pt Level 4 (06468) Diagnoses Age-related osteoporosis without current pathological fracture M81.0 Osteoporosis type: age-related Presence of current pathological fracture: without current pathological fracture
[2023-01-27 09:24] VITALS: BP 122/82; PULSE 84; TEMP 36.7; O2SAT 98; BMI 19.0
== END 2023-01-27 09:43 | disposition home or self-care (01) ==
PROVIDERS: PCP Internal Medicine; Visit Provider Student in an Organized Health Care Education/Training Program
DX: M81.0 Age-related osteoporosis without current pathological fracture (principal)
CPT/HCPCS: 99214

== ENCOUNTER → 2023-01-27 09:06 | Outpatient (BNVA) | payer MEDICARE, MEDICAID, SELFPAY | PROVIDERS: PCP Internal Medicine; Visit Provider Student in an Organized Health Care Education/Training Program | DX: M81.0 Age-related osteoporosis without current pathological fracture (principal) | CPT/HCPCS: 96372; 99212; J0897 ==

== ENCOUNTER → 2023-04-21 08:35 | Outpatient (BNVA) | payer MEDICARE, MEDICAID, SELFPAY | PROVIDERS: PCP Internal Medicine; Visit Provider Obstetrics & Gynecology ==

== ENCOUNTER 2023-05-07 07:28 | Outpatient (REF) | payer MEDICARE, MEDICAID, SELFPAY ==
--- NOTE | ~2023-05-07 | US_ITS ---
EXAMINATION: US RETROPERITONEAL LIMITED (RENAL ONLY) CLINICAL INFORMATION: Other microscopic hematuria. COMPARISON: None available. TECHNIQUE: Real-time imaging of the kidneys. FINDINGS: RIGHT KIDNEY: 9.8 x 3.2 x 4.5 cm (SAG x AP x TRV). The kidney is normal in size, contour, and echogenicity. Renal cortical thickness is normal. No calculi or focal parenchymal lesions. No hydronephrosis. LEFT KIDNEY: 9.4 x 5.3 x 4.9 cm (SAG x AP x TRV). The kidney is normal in size, contour, and echogenicity. Renal cortical thickness is normal. No calculi or focal parenchymal lesions. No hydronephrosis. US/US renal BI IMPRESSION: Unremarkable renal ultrasound.
== END 2023-05-07 07:29 | disposition home or self-care (01) ==
LOC: HO.US 07:28
PROVIDERS: PCP Internal Medicine; Visit Provider Urology
DX: R31.29 Other microscopic hematuria (principal)
CPT/HCPCS: 76775

== ENCOUNTER 2023-05-17 09:41 | Outpatient (AMB) | payer MEDICARE, MEDICAID, SELFPAY ==
--- NOTE | 2023-05-17 09:50 | A.OFFVIS_ITS ---
Intake Intake Visit Reasons: follow up/US Intake Note: Patient presents today for a follow up on US Meds- None Allergies to Antibiotic- No Known Allergies Blood Thinner- None Post Void Residual: 29ml Canoe Inspector Required: No Accompanied by: Self / Same As Patient Allergies Latex Gloves Allergy (Intermediate, Uncoded 05/17/23 10:08) edema HPI HPI Comments History of Present Illness Details Yanci is a 71-year-old female who presents to the office for follow- up, overactive bladder symptoms, irritative voiding symptoms and microscopic hematuria. She had a renal ultrasound done, 05/07/2023 kidneys were evaluated and within normal limits. In discussion with the patient today she states that some ascitic foods cause her to have burning with urination and she has used the fvak-ewd-[id number] azo tablets which helped. She occasionally will get some urge incontinence if she can not get to the bathroom in time she does get up at night to urinate but falls right back to sleep. She is on Prolia for osteoporosis and takes calcium supplements. She states she did not use the Vagifem for long due to concerns for side effects. She is comfortable with her urinary symptoms at this time she has not interested in any medication. Plan Behavioral modification, continue to avoid dietary bladder irritants. Review of chart 05/25/2022-- 71-year-old female being followed for OA B, has infrequent episodes of dribbling if she is unable to get to the bathroom in time. She is up at night 3-4 times to urinate. Denies dysuria. The patient is a non-smoker. Evaluation today: Blood: 1+. Leukocytes: negative. Bladder scan PVR: 73 mL. Plan--Nocturia. Renal US prior was ordered. Microscopic Hematuria. Urine for cytology was ordered. Cystoscopy procedure was discussed. Follow-up for office cystoscopy. OAB. Cont vaginal estradiol 05/22/21-- with RICH Mac--70-ye ar old diabetic female seen for OAB was prescribed with Myrbetriq, however did not fill it because she was worried about getting constipation from medication. She was also instructed to use estradiol cream three times a week. 05/17/2023--Plan Behavioral modification, continue to avoid dietary bladder irritants. [facility] Medical History Urinary incontinence Osteoporosis Family History Sister Ovarian cancer Social History Household Members: Family Alcohol intake: never Patient Tobacco Use Status: Never used Tobacco Sexual orientation: Straight/Heterosexual Gender identity: Female Female Reproductive History Menstrual Age of Menarche: 12 Review of Systems Const All systems reviewed & are unremarkable except as noted in HPI and below Reports no additional complaints Eyes Reports no additional complaints ENT Reports no additional complaints Card Reports no additional complaints Resp Reports no additional complaints GI Reports no additional complaints Reports as per HPI Musc Reports no additional complaints Skin/Breast Reports system reviewed and no additional complaints, except as documented Neuro Reports no additional complaints Psych Reports no additional complaints Endo Reports no additional complaints Sravan/Lymph Reports no additional complaints Aller/Immun Reports no additional complaints Office Procedures Post Void Residual Post Residual Void Post Void Residual (PVR): 29 57019-Ehft Void Residual by ultrasound Results AMB Urinalysis, Automated UA Leukoctes 0 Tulio/uL Last Edit by Zoraida Friedman CMA on 05/17/23 10 :02 UA Nitrite Negative Last Edit by Zoraida Friedman CMA on 05/17/23 10: 02 UA Urobilinogen 0.2 mg/dL Last Edit by Zoraida Friedman CMA on 4 10:02 UA Protein 0 mg/dL Last Edit by Zoraida Friedman CMA on 05/17/23 10:02 UA pH 8.0 Last Edit by Zoraida Friedman CMA on 05/17/23 10:02 UA Blood 10 Willard/uL Last Edit by Zoraida Friedman CMA on 05/17/23 10:02 UA Specific Clemons 1.010 Last Edit by Zoraida Friedman CMA on 10:02 UA Ketone Negative Last Edit by Zoraida Friedman CMA on 05/17/23 10:0 2 UA Bilirubin 0 mg/dL Last Edit by Zoraida Friedman CMA on 05/17/23 10: 02 UA Glucose 0 mg/dL Last Edit by Zoraida Friedman CMA on 05/17/23 10:02 Results Reviewed Results Reviewed: Laboratory Last Values Urine pH (Auto) 8.0 05/17/23 09:51 Specific Clemons (Auto) 1.010 05/17/23 09:51 Urine Protein (Auto) 0 mg/dL 05/17/23 09:51 Glucose (UA)(Auto) 0 mg/dL 05/17/23 09:51 Urine Ketones (Auto) Negative 05/17/23 09:51 Urine Blood (Auto) 10 Willard/uL 05/17/23 09:51 Urine Nitrite (Auto) Negative 05/17/23 09:51 Urine Bilirubin (Auto) 0 mg/dL 05/17/23 09:51 Urine Urobilinogen (Auto) 0.2 mg/dL 05/17/23 09:51 Leukocyte Esterase (Auto) 0 Tulio/uL 05/17/23 09:51 Date of Service: 05/07/23 US RETROPERITONEAL LIMITED (RENAL ONLY) CLINICAL INFORMATION: Other microscopic hematuria. COMPARISON: None available. TECHNIQUE: Real-time imaging of the kidneys. FINDINGS: RIGHT KIDNEY: 9.8 x 3.2 x 4.5 cm (SAG x AP x TRV). The kidney is normal in size, contour, and echogenicity. Renal cortical thickness is normal. No calculi or focal parenchymal lesions. No hydronephrosis. LEFT KIDNEY: 9.4 x 5.3 x 4.9 cm (SAG x AP x TRV). The kidney is normal in size, contour, and echogenicity. Renal cortical thickness is normal. No calculi or focal parenchymal lesions. No hydronephrosis. IMPRESSION: Unremarkable renal ultrasound. Assessment & Plan Assessment & Plan (1) Microscopic hematuria: Code(s): R31.29 - Other microscopic hematuria (2) OAB (overactive bladder): Code(s): N32.81 - Overactive bladder (3) Urge incontinence: Code(s): N39.41 - Urge incontinence (4) Interstitial cystitis (chronic) with hematuria: Code(s): N30.11 - Interstitial cystitis (chronic) with hematuria Plan Plan Behavioral modification, continue to avoid dietary bladder irritants. Orders: Orders AMB Urinalysis Automated Today R33.9 - Retention of urine, unspecified AMB Post Void Residual by ultrasound Today R33.9 - Retention of urine, unspecified Patient Instructions: The patient had an opportunity to ask questions regarding treatment plan. All questions were answered. Imaging, Laboratory studies and physical exam results were discussed and reviewed in detail. No major barriers to understanding were identified. The patient expressed understanding and agreement with the above treatment plan. The patient is aware they should contact our office by phone for worsening of their current condition or the appearance of new symptoms. Compliance is encouraged with any medications and followup testing that is ordered. It is a privilege to be allowed the opportunity to participate in the urologic care of your patient. If you have any questions or concerns regarding treatment for the above conditions please do not hesitate to contact me. The office telephone contact is [phone]. This note is constructed in part using voice recognition software. While every effort has been made to ensure accuracy senior drafter errors may have been included. Yours sincerely, Mosies Mueller MD Coding Level of Care Code Est Pt Level 4 (51732) Diagnoses Microscopic hematuria R31.29 OAB (overactive bladder) N32.81 Urge incontinence N39.41 Interstitial cystitis (chronic) with hematuria N30.11 CPT Codes Post Residual Void - PVR CPT Code: 93804-Bhgq Void Residual by ultrasound ([id number])
== END 2023-05-17 10:35 | disposition home or self-care (01) ==
PROVIDERS: PCP Internal Medicine; Visit Provider Urology
DX: R31.29 Other microscopic hematuria (principal); N32.81 Overactive bladder; N39.41 Urge incontinence; N30.11 Interstitial cystitis (chronic) with hematuria; R33.9 Retention of urine, unspecified
CPT/HCPCS: 99214

== ENCOUNTER → 2023-05-17 09:41 | Outpatient (BNVA) | payer MEDICARE, MEDICAID, SELFPAY | PROVIDERS: PCP Internal Medicine; Visit Provider Urology | DX: N32.81 Overactive bladder (principal); R31.29 Other microscopic hematuria; N39.41 Urge incontinence; N30.11 Interstitial cystitis (chronic) with hematuria; R33.9 Retention of urine, unspecified | CPT/HCPCS: 51798; 81003; 99212 ==

== ENCOUNTER 2023-06-23 09:21 | Outpatient (REF) | payer MEDICARE, MEDICAID, SELFPAY ==
--- NOTE | ~2023-06-23 | MM_ITS ---
EXAMINATION: BONE DENSITOMETRY CLINICAL INDICATION: Age-related osteoporosis without current pathological fracture. COMPARISON: Previous BD dated 06/03/2021 and baseline BD dated 12/13/2006. TECHNIQUE: Using a Coridon DXA System (software version: 13.1) manufactured by [employer], dual-energy x-ray absorptiometry was performed of the lumbar spine and left hip. The images are of good technical quality. Summary results are attached. FINDINGS: LEFT FEMUR, NECK: Current: BMD 0.667 g/cm2, Z-score -0.6, T-score -2.7, osteoporosis. Prior: BMD 0.649 g/cm2. Baseline: BMD 0.714 g/cm2. LEFT FEMUR, TOTAL: Current: BMD 0.685 g/cm2, Z-score -0.7, T-score -2.6, osteoporosis, 4.7% increase from previous, 8.8% decrease from baseline (<5% change is not significant). Prior: BMD 0.654 g/cm2. Baseline: BMD 0.751 g/cm2. AP SPINE L1-L4: Current: BMD 0.878 g/cm2, Z-score -0.4, T-score -2.5, osteoporosis, 3.7% increase from previous, 6.2% decrease from baseline (<5% change is not significant). Prior: BMD 0.847 g/cm2. Baseline: BMD 0.936 g/cm2. IDENTIFIED RISK FACTORS: Height loss, menopause, osteoporosis. HISTORY OF FRACTURE: None listed. MEDICATIONS: Calcium supplements or multivitamin, vitamin D, Prolia. MM/XR DEXA axial skeleton IMPRESSION: 1. DIAGNOSIS: Osteoporosis based on the lowest T-score value of -2.7 in the femoral neck applying World Health Organization criteria. 2. 10-YEAR FRACTURE RISK PREDICTION, FRAX: According to the guidelines, FRAX calculation should only be performed on patients in the osteopenia bone density category. Therefore, FRAX was not performed on this patient. 3. Treatment Recommendations: NOF guidelines recommend consideration for treatment in postmenopausal women and men age 50 and older presenting with the following: -A hip or vertebral (clinical or morphometric) fracture. -T-score less than or equal to -2.5 at the femoral neck or spine after appropriate evaluation to exclude secondary causes. -Low bone mass at the hip or spine and a 10-year fracture probability by FRAX of greater than or equal to 3% for hip fracture or greater than or equal to 20% for major osteoporotic fracture based on the [place] adapted WHO algorithm. 4. Other Recommendations: All treatment decisions require clinical judgment and consideration of individual patient factors, including patient preferences, comorbidities, previous drug use, risk factors not captured in the FRAX model (e.g. frailty, falls, vitamin D deficiency, increased bone turnover, interval significant decline in bone density) and possible under or overestimation of fracture risk by FRAX. Additional medical evaluation for secondary cause of low bone mineral density may be appropriate. FUTURE SCAN RECOMMENDATION: People with diagnosed cases of osteoporosis or at high risk for fracture should have regular bone mineral density tests. For patients eligible for Medicare, routine testing is allowed once every 2 years. The testing frequency can be increased to one year for patients who have rapidly progressing disease, those who are receiving or discontinuing medical therapy to restore bone mass, or have additional risk factors.
== END 2023-06-23 09:22 | disposition home or self-care (01) ==
LOC: HO.MAMMO 09:21
PROVIDERS: PCP Internal Medicine; Visit Provider Student in an Organized Health Care Education/Training Program
DX: Z13.820 Encounter for screening for osteoporosis (principal); Z78.0 Asymptomatic menopausal state; M81.0 Age-related osteoporosis without current pathological fracture
CPT/HCPCS: 77080

== ENCOUNTER 2023-07-23 06:05 | Outpatient (REF) | payer MEDICARE, MEDICAID, SELFPAY ==
[2023-07-23 07:24] LABS: Anion Gap 12 (12-20); Blood Urea Nitrogen 12 mg/dL (9-16); Calcium 9.8 mg/dL (8.4-10.2); Carbon Dioxide 28 mmol/L (22-29); Chloride 106 mmol/L (96-108); Estimated Glomerular Filt Rate > 60; Glucose Random 88 mg/dL (60-115); Potassium 3.7 mmol/L (3.3-5.1); Sodium 142 mmol/L (135-145)
[2023-07-27 13:12] LABS: Vitamin D 25-OH, D2 7 ng/mL; Vitamin D 25-OH, D3 42 ng/mL; Vitamin D 25-OH, Total 49 ng/mL (30-100)
== END 2023-07-23 06:06 | disposition home or self-care (01) ==
LOC: HO.LAB 06:05
PROVIDERS: PCP Internal Medicine; Visit Provider Student in an Organized Health Care Education/Training Program
DX: M81.0 Age-related osteoporosis without current pathological fracture (principal); Z13.21 Encounter for screening for nutritional disorder
CPT/HCPCS: 36415; 80048; 82306

== ENCOUNTER 2023-07-29 07:46 | Outpatient (AMB) | payer MEDICARE, MEDICAID, SELFPAY ==
--- NOTE | 2023-07-29 07:58 | A.OFFVIS_ITS ---
Vital Signs 07/29/23 08:11 Height 5 ft 2.52 in Weight 107 lb 2.314 oz BMI 19.3 BP 132/64 Blood Pressure Location Rt brachial Position Sitting Pulse 87 Pulse Source Pulse Oximeter Pulse Oximetry (%) 99 Oxygen Delivery Method Room Air Intake Visit Reasons: osteoporosis/prolia inj Intake Note: Patient last seen 01/27/23, presents today for osteoporosis follow up and Prolia injection. Last DEXA done Jun, 2023. Supervisor Pullet Farm Required: No Accompanied by: Self / Same As Patient Allergies Latex Gloves Allergy (Intermediate, Uncoded 07/29/23 08:12) edema Medication List - Last Reconciled 07/29/23 by Rashaad Wadsworth MD atorvastatin 10 mg PO DAILY calcium carbonate 600 mg PO DAILY cholecalciferol (vitamin D3) 25 mcg PO DAILY gzemfnlg-qqa-US-lycopen-lutein 0.4 mg-300 mcg- 250 mcg (Centrum Silver) 1 tab PO DAILY Prolia (denosumab) 60 mg subcut [id number] NS HPI Comments Details: 72-year-old female with osteoporosis returns for follow-up and Prolia injection. Last Prolia injection was 01/2023. Patient states that her balance has been off recently but she has not had any falls. She has been a little bit more forgetful. Her weight has remained the same. Compliant with calcium and vitamin-D [facility] Medical History Urinary incontinence Osteoporosis Family History Sister Ovarian cancer Social History Household Members: Family Alcohol intake: never Patient Tobacco Use Status: Never used Tobacco Sexual orientation: Straight/Heterosexual Gender identity: Female Female Reproductive History Menstrual Age of Menarche: 12 Review of Systems Musc Denies back pain and Denies arthralgias Neuro Details: Poor balance Physical Exam Vital Signs: Last Vital Signs Pulse 87 07/29/23 08:11 BP 132/64 07/29/23 08:11 Pulse Ox 99 07/29/23 08:11 Oxygen Delivery Method Room Air 07/29/23 08:11 BMI result Body Mass Index 19.3 Const General: cooperative and healthy appearing Nutritional Appearance: thin Orientation/consciousness: patient oriented x3 Limitations: no limitations HEENT Head: Yes normocephalic and Yes atraumatic Mouth: moist mucous membranes Resp Effort & Inspection: normal respiratory effort and able to speak in complete sentences Auscultation: clear to auscultation bilaterally GI Inspection: No distended Palpation (GI): Soft to palpation and nontender Skin General skin exam: no rashes or lesions noted Neuro General: patient oriented x3 Extrem Other: Osteoarthritic changes of both hands with no active synovitis\ Proximal muscle strength 5/5 all 4 extremities Intact nmlkxf-wp-lwnn test bilaterally Results Reviewed Results Reviewed: Laboratory Tests Date of Service: 06/03/21 Procedure(s): XR DEXA axial skeleton Accession Number(s): [id number] EXAMINATION: BONE DENSITOMETRY CLINICAL INDICATION: Osteoporosis. COMPARISON: Previous BD dated 12/22/2018 and baseline BD dated 12/13/2006. TECHNIQUE: Using a CohesiveFT DXA System (software version: 13.1) manufactured by [employer], dual-energy x-ray absorptiometry was performed of the lumbar spine and left hip. The images are of good technical quality. Summary results are attached. FINDINGS: AP SPINE L1-L4: Current: BMD 0.847 g/cm2, Z-score -0.7, T-score -2.8, osteoporosis, 6.3% increase from previous, 9.5% decrease from baseline (<5% change is not significant). Prior: BMD 0.797 g/cm2. Baseline: BMD 0.936 g/cm2. LEFT FEMUR, NECK: Current: BMD 0.649 g/cm2, Z-score -0.9, T-score -2.8, osteoporosis. Prior: BMD 0.579 g/cm2. Baseline: BMD 0.714 g/cm2. LEFT FEMUR, TOTAL: Current: BMD 0.654 g/cm2, Z-score -1.1, T-score -2.8, osteoporosis, 5.5% increase from previous, 12.9% decrease from baseline (<5% change is not significant). Prior: BMD 0.620 g/cm2. Baseline: BMD 0.751 g/cm2. IDENTIFIED RISK FACTORS: Menopause, osteoporosis, renal. HISTORY OF FRACTURE: None listed. MEDICATIONS: Calcium, vitamin D, Prolia. MM/XR DEXA axial skeleton IMPRESSION: 1. DIAGNOSIS: Osteoporosis based on the lowest T-score value of -2.8 in the lumbar spine, femur neck, and total femur applying World Health Organization criteria.? Ordering Physician: Rashaad Wadsworth MD Results: Date of Service: 06/23/23 Follow Up: Procedure(s): XR DEXA axial skeleton Accession Number(s): [id number] cc: Jabier Santamaria MD; Rashaad Wadsworth MD~ EXAMINATION: BONE DENSITOMETRY CLINICAL INDICATION: Age-related osteoporosis without current pathological fracture. COMPARISON: Previous BD dated 06/03/2021 and baseline BD dated 12/13/2006. TECHNIQUE: Using a CohesiveFT DXA System (software version: 13.1) manufactured by [employer], dual-energy x-ray absorptiometry was performed of the lumbar spine and left hip. The images are of good technical quality. Summary results are attached. FINDINGS: LEFT FEMUR, NECK: Current: BMD 0.667 g/cm2, Z-score -0.6, T-score -2.7, osteoporosis. Prior: BMD 0.649 g/cm2. Baseline: BMD 0.714 g/cm2. LEFT FEMUR, TOTAL: Current: BMD 0.685 g/cm2, Z-score -0.7, T-score -2.6, osteoporosis, 4.7% increase from previous, 8.8% decrease from baseline (<5% change is not significant). Prior: BMD 0.654 g/cm2. Baseline: BMD 0.751 g/cm2. AP SPINE L1-L4: Current: BMD 0.878 g/cm2, Z-score -0.4, T-score -2.5, osteoporosis, 3.7% increase from previous, 6.2% decrease from baseline (<5% change is not significant). Prior: BMD 0.847 g/cm2. Baseline: BMD 0.936 g/cm2. IDENTIFIED RISK FACTORS: Height loss, menopause, osteoporosis. HISTORY OF FRACTURE: None listed. MEDICATIONS: Calcium supplements or multivitamin, vitamin D, Prolia. MM/XR DEXA axial skeleton IMPRESSION: 1. DIAGNOSIS: Osteoporosis based on the lowest T-score value of -2.7 in the femoral neck applying World Health Organization criteria. 2. 10-YEAR FRACTURE RISK PREDICTION, FRAX: According to the guidelines, FRAX calculation should only be performed on patients in the osteopenia bone density category. Therefore, FRAX was not performed on this patient. Assessment & Plan Assessment & Plan (1) Osteoporosis: Comment: Raloxifene: 2017-01/2019 Prolia: December 2018- present Code(s): M81.0 - Age-related osteoporosis without current pathological fracture Category: Medical Qualifiers: Osteoporosis type: age-related Presence of current pathological fracture: without current pathological fracture Qualified Code(s): M81.0 - Age- related osteoporosis without current pathological fracture Plan: ?DEXA (12/2018) T score -3.3 in femoral neck. On Prolia since January 2019. Previously on raloxifene but had worsening DEXA scan so was switched to Prolia. Her most recent bone density 06/2023 shows improving bone density. Will continue with Prolia. Plan to repeat DEXA 06/2025 Patient received Prolia injection in clinic today. Of note patient had dental procedures such as crowns while on Prolia with no untoward consequences Vitamin-D level at target. Continue current calcium and vitamin-D dose We discussed weight-bearing exercises for osteoporosis. Labs before next visit in 6 months. Prolia injection in the same day ? (2) Poor balance: Code(s): R26.89 - Other abnormalities of gait and mobility Category: Medical Plan: Discussed PT/OT referral. Patient will think about it. Plan I spent 27 minutes reviewing patient's chart, evaluating patient, ordering diagnostic workup, counseling patient and documenting in the chart Orders: Orders Basic Metabolic Panel 6 Months M81.0 - Age-related osteoporosis without current pathological fracture Coding Level of Care Code Est Pt Level 4 (02133) Diagnoses Age-related osteoporosis without current pathological fracture M81.0 Osteoporosis type: age-related Presence of current pathological fracture: without current pathological fracture Poor balance R26.89
[2023-07-29 08:11] VITALS: BP 132/64; PULSE 87; O2SAT 99; BMI 19.3
== END 2023-07-29 08:27 | disposition home or self-care (01) ==
PROVIDERS: PCP Internal Medicine; Visit Provider Student in an Organized Health Care Education/Training Program
DX: M81.0 Age-related osteoporosis without current pathological fracture (principal); R26.89 Other abnormalities of gait and mobility
CPT/HCPCS: 99214

== ENCOUNTER → 2023-07-29 07:46 | Outpatient (BNVA) | payer MEDICARE, MEDICAID, SELFPAY | PROVIDERS: PCP Internal Medicine; Visit Provider Student in an Organized Health Care Education/Training Program | DX: M81.0 Age-related osteoporosis without current pathological fracture (principal); R26.89 Other abnormalities of gait and mobility | CPT/HCPCS: 96372; 99212; J0897 ==

== ENCOUNTER 2023-10-21 06:00 | Outpatient (REF) | payer MEDICARE, MEDICAID, SELFPAY ==
[2023-10-21 06:16] LABS: MANUAL DIFF FLAG NO
[2023-10-21 07:17] LABS: Basophils Percent Auto 0.8 % (0-2); Eosinophils Absolute Auto 0.2 X10*3/uL (0.0-0.4); Eosinophils Percent Auto 3.6 % (0-4); Hematocrit 37.7 % (37.0-47.0); Hemoglobin 12.4 g/dl (12.0-16.0); Imm Gran Abs Auto 0.01 X10*3/uL (0.00-0.03); Imm Gran Pct Auto 0.2 % (0.0-0.4); Lymphocytes Absolute Auto 1.3 X10*3/uL (1.2-4.9); Lymphocytes Percent Auto 24.1 % (20-40); Mean Corpuscular HGB Conc 32.9 g/dl (31.0-35.0); Mean Corpuscular Hemoglobin 31.5 pg (27.0-33.0); Mean Corpuscular Volume 95.7 fL (80.0-98.0); Mean Platelet Volume 9.6 fL (9.4-12.3); Monocytes Absolute Auto 0.5 X10*3/uL (0.1-1.2); Monocytes Percent Auto 9.7 % (2-11); Neutrophils Absolute Auto 3.3 x10*3/uL (2.0-8.3); Neutrophils Percent Auto 61.6 % (45-73); Platelet Count 247 X10*3/uL (160-400); Red Blood Count 3.94 X10*6/uL (4.20-5.50); Red Cell Distribution Width 12.9 % (11.0-16.0); White Blood Count 5.3 X10*3/uL (4.8-10.8)
[2023-10-21 07:52] LABS: Alanine Aminotransferase 18 U/L (0-31); Albumin Level 4.4 g/dL (3.5-5.0); Alkaline Phosphatase 53 U/L (39-117); Anion Gap 10 (12-20); Aspartate Amino Transferase 22 U/L (5-31); Blood Urea Nitrogen 9 mg/dL (9-16); Calcium 9.7 mg/dL (8.4-10.2); Carbon Dioxide 29 mmol/L (22-29); Chloride 104 mmol/L (96-108); Cholesterol 176 mg/dL (<200); Estimated Glomerular Filt Rate > 60; Glucose Fasting 89 mg/dL (60-99); HDL Cholesterol 80 mg/dL (>40); LDL Cholesterol Calculated 81 mg/dL (<100); Potassium 3.9 mmol/L (3.3-5.1); Sodium 139 mmol/L (135-145); Total Protein 7.5 g/dL (6.5-8.0); Triglycerides 76 mg/dL (<150)
[2023-10-21 08:10] LABS: Vitamin D 25-OH Total 62.3 ng/mL (>30)
== END 2023-10-21 06:01 | disposition home or self-care (01) ==
LOC: HO.LAB 06:00
PROVIDERS: PCP Internal Medicine; Visit Provider Internal Medicine
DX: M81.0 Age-related osteoporosis without current pathological fracture (principal); K57.90 Diverticulosis of intestine, part unspecified, without perforation or abscess without bleeding; E78.00 Pure hypercholesterolemia, unspecified
CPT/HCPCS: 36415; 80053; 80061; 82306; 85025

== ENCOUNTER 2024-01-04 07:21 | Outpatient (REF) | payer MEDICARE, MEDICAID, SELFPAY ==
--- NOTE | ~2024-01-04 | MM_ITS ---
EXAMINATION: MM SCREENING DIGITAL BREAST TOMOSYNTHESIS, BILATERAL CLINICAL INFORMATION: Screening. Asymptomatic. COMPARISON: Mammography: Comparison is made with available priors TECHNIQUE: Digital breast mammography with tomosynthesis is performed in both the craniocaudal and mediolateral oblique views along with computer-aided detection (CAD). FINDINGS: The breasts are heterogeneously dense, which may obscure small masses (ACR BI-RADS breast composition Category c). There are no significant masses, abnormal calcifications, or other abnormalities. MM/MM tomosynthesis screening BI IMPRESSION: No mammographic evidence of malignancy. ASSESSMENT: BI-RADS BI-RADS 1 - Negative RECOMMENDATION: Routine annual mammography screening. 1 year F/U This examination should not preclude the clinical evaluation of a suspicious palpable abnormality. This patient's information was entered into a reminder system with a target due date for their next mammogram. Electronically signed by: Elvia Brannon DO 01/11/2024 04:38 PM BRYANNA
== END 2024-01-04 07:22 | disposition home or self-care (01) ==
LOC: HO.MAMMO 07:21
PROVIDERS: PCP Internal Medicine; Visit Provider Internal Medicine
DX: Z12.31 Encounter for screening mammogram for malignant neoplasm of breast (principal)
CPT/HCPCS: 77063; 77067

== ENCOUNTER → 2024-01-04 07:45 | Outpatient (BNV) | payer MEDICARE, MEDICAID, SELFPAY | PROVIDERS: PCP Internal Medicine; Visit Provider Internal Medicine | DX: Z12.31 Encounter for screening mammogram for malignant neoplasm of breast (principal) | CPT/HCPCS: 77063; 77067 ==

== ENCOUNTER 2024-01-11 08:58 | Outpatient (AMB) | payer MEDICARE, MEDICAID, SELFPAY ==
--- NOTE | 2024-01-11 09:22 | MHC.OFFVIS ---
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 No complaints. Last Pap/HPV was in 2015 was negative, preceded by negative Pap smear in Last Mammogram was done in 01/08, results are still pending Last Colonoscopy was 14 years ago Last DEXA scan was in 07/08, the patient has been followed by Rhe[facility] Medical History Urinary incontinence Osteoporosis Family History Sister Ovarian cancer Social History Household Members: Family Alcohol intake: never Patient Tobacco Use Status: Never used Tobacco Sexual orientation: Straight/Heterosexual Gender identity: Female Female Reproductive History Menstrual Age of Menarche: 12 Date of last pap smear: 01/02/22 Date of Mammogram: 01/04/24 Date of last Bone Density Screenin06/23/23 Review of Systems Const All systems reviewed & are unremarkable except as noted in HPI and below Card Reports as per HPI Resp Reports as per HPI GI Reports as per HPI and Reports no additional complaints Reports as per HPI Physical Exam Vital Signs: Last Vital Signs BP 110/70 01/11/24 09:29 BMI result Body Mass Index 19.8 Const General: cooperative, healthy appearing and comfortable Chest Chest palpation & inspection: normal inspection of the chest and normal palpation of entire chest wall Breast/axilla inspection: normal inspection of the breasts and normal inspection of the axillae Breast/axilla palpation: normal palpation of the breasts, normal palpation of the axillae and no axillary lymphadenopathy Resp Effort & Inspection: normal respiratory effort Auscultation: clear to auscultation bilaterally Percussion: percussion normal Cardio Palpation: normal PMI Rate: regular rate Rhythm: regular rhythm Heart sounds: no murmurs and no rubs Peripheral pulses: Peripheral pulses 2+ throughout GI Inspection: Yes normal to inspection Palpation (GI): Soft to palpation, nontender, no guarding, not rigid and No hepatosplenomegaly present Percussion: Yes normal to percussion Auscultation: normal bowel sounds Rectal Exam - Female: deferred General: Yes bladder normal to palpation External Female Exam: No lesion Speculum Exam - Vagina: normal appearance of the vagina, normal palpation, normal vaginal discharge and not erythematous Speculum Exam - Cervix: normal appearance of the cervix and normal palpation Bimanual exam- vagina & uterus: normal bimanual exam, normal palpation, uterine size normal, bladder normal to palpation, consistency normal and normal palpation Bimanual Exam- Adnexa, other: normal adnexae, no masses and no tenderness Assessment & Plan Assessment & Plan (1) Well woman exam: Code(s): Z01.419 - Encounter for gynecological examination (general) (routine) without abnormal findings Category: Medical Plan: Co testing not indicated since the patient 's age is above 65 with no history of abnormal Pap smears last 25 years. Counseled the patient about the recommended dietary allowance of 1200 mg of Calcium & 800 IU of vitamin D. Instructions given the patient to schedule next screening Mammogram in 01/09 The patient is aware that she is due for a screening colonoscopy will call when she is ready for referral The patient was instructed to perform monthly self-breast exams and to schedule a 2 week DEXA scan follow-up appointment and an annual exam in a year; All questions answered and the patient verbalized understanding. Coding Level of Care Code Est Pt Prev Care >65y(66433) Diagnoses Well woman exam Z01.419
[2024-01-11 09:29] VITALS: BP 110/70; BMI 19.8
== END 2024-01-11 09:43 | disposition home or self-care (01) ==
LOC: HO.HWS 08:58
PROVIDERS: PCP Internal Medicine; Visit Provider Obstetrics & Gynecology
DX: Z01.419 Encounter for gynecological examination (general) (routine) without abnormal findings (principal)
CPT/HCPCS: G0101

== ENCOUNTER → 2024-01-11 08:58 | Outpatient (BNVA) | payer MEDICARE, MEDICAID, SELFPAY | PROVIDERS: PCP Internal Medicine; Visit Provider Obstetrics & Gynecology | DX: Z01.419 Encounter for gynecological examination (general) (routine) without abnormal findings (principal) | CPT/HCPCS: G0101 ==

== ENCOUNTER 2024-01-21 06:06 | Outpatient (REF) | payer MEDICARE, MEDICAID, SELFPAY ==
[2024-01-21 08:02] LABS: Anion Gap 14 (12-20); Blood Urea Nitrogen 10 mg/dL (9-16); Calcium 9.5 mg/dL (8.4-10.2); Carbon Dioxide 25 mmol/L (22-29); Chloride 106 mmol/L (96-108); Estimated Glomerular Filt Rate > 60; Glucose Random 79 mg/dL (60-115); Sodium 141 mmol/L (135-145)
--- OUTSIDE RECORDS SUMMARY | 2024-01-26 04:35 | XMS_ITS | Patient Health Record ---
Author Organization [facility] Address [address] [place] [address] Care Team Providers Care University Administrative Assistant Name Role Phone Jabier Santamaria MD Primary Care Provider Isaac Gutierrez [phone] REASON FOR REFERRAL No Information SOCIAL HISTORY Sex Assigned At : Social History Observation Description Sex Assigned At Unknown PLAN OF TREATMENT No Information Insurance Providers Payer Name Payer Address Payer Phone Subscriber Number Group Number Insured Name Patient Relationship to Insured Coverage Start Date Coverage End Date MEDICARE OF [place] [address] [place] [id number] NEDA WEBB Self - patient is the insured MEDICAID OF [facility] [address] [place] [address] [id number] NEDA WEBB Self - patient is the insured
[2024-01-27 12:18] LABS: Vitamin D 25-OH, D2 7 ng/mL; Vitamin D 25-OH, D3 43 ng/mL; Vitamin D 25-OH, Total 50 ng/mL (30-100)
== END 2024-01-21 06:07 | disposition home or self-care (01) ==
LOC: HO.LAB 06:06
PROVIDERS: PCP Internal Medicine; Visit Provider Student in an Organized Health Care Education/Training Program
DX: M81.0 Age-related osteoporosis without current pathological fracture (principal); E55.9 Vitamin D deficiency, unspecified
CPT/HCPCS: 36415; 80048; 82306

== ENCOUNTER 2024-01-31 08:59 | Outpatient (AMB) | payer MEDICARE, MEDICAID, SELFPAY ==
--- NOTE | 2024-01-31 09:06 | A.OFFVIS_ITS ---
Vital Signs 01/31/24 09:13 Height 5 ft 3 in Weight 112 lb 10.499 oz BMI 20.0 BP 134/62 Blood Pressure Location Lt brachial Position Sitting Pulse 80 Pulse Source Pulse Oximeter Pulse Oximetry (%) 98 Oxygen Delivery Method Room Air Intake Visit Reasons: osteoporosis follow up and prolia Intake Note: Patient presents for Osteoporosis follow up and Prolia injection. Allergies Latex Gloves Allergy (Intermediate, Uncoded 07/29/23 08:12) edema Medication List - Last Reconciled 01/31/24 by Rashaad Wadsworth MD calcium carbonate 600 mg PO DAILY cholecalciferol (vitamin D3) 25 mcg PO DAILY denosumab (Prolia) 60 mg subcut [id number] kifckakm-wmr-HW-lycopen-lutein 0.4 mg-300 mcg- 250 mcg (Centrum Silver) 1 tab PO DAILY rosuvastatin 10 mg PO DAILY HPI Comments Details: 73-year-old female with osteoporosis returns for follow-up and Prolia injection. Doing well overall. She states that she continues to have poor balance. She has not had any significant falls. [facility] Medical History Urinary incontinence Osteoporosis Family History Sister Ovarian cancer Social History Household Members: Family Alcohol intake: never Patient Tobacco Use Status: Never used Tobacco Sexual orientation: Straight/Heterosexual Gender identity: Female Female Reproductive History Menstrual Age of Menarche: 12 Review of Systems Musc Denies back pain and Denies arthralgias Neuro Details: Poor balance Physical Exam Vital Signs: Last Vital Signs Pulse 80 01/31/24 09:13 BP 134/62 01/31/24 09:13 Pulse Ox 98 01/31/24 09:13 Oxygen Delivery Method Room Air 01/31/24 09:13 BMI result Body Mass Index 20.0 Const General: cooperative and healthy appearing Nutritional Appearance: thin Orientation/consciousness: patient oriented x3 Limitations: no limitations HEENT Head: Yes normocephalic and Yes atraumatic Resp Effort & Inspection: normal respiratory effort and able to speak in complete sentences Skin General skin exam: no rashes or lesions noted Neuro General: patient oriented x3 Extrem Other: Osteoarthritic changes of both hands with no active synovitis Proximal muscle strength 5/5 all 4 extremities Office Meds Prolia 60 mg/mL subcutaneous syringe Performing Provider: Rashaad Wadsworth MD Performing Location: [facility] [place] [facility] Administered by: Rashaad Wadsworth MD on 01/31/24 09:37 Dose Route Admin Location Dispensed Lot Number Expiration Date NDC Veterinary Medicine Doctor 60 mg subcut RT deltoid 1 mL [id number] 08/14/26 96086-926-90 [employer] Assessment & Plan Assessment & Plan (1) Osteoporosis: Comment: Raloxifene: Prolia: December 2018- present Code(s): M81.0 - Age-related osteoporosis without current pathological fracture Category: Medical Qualifiers: Osteoporosis type: age-related Presence of current pathological fracture: without current pathological fracture Qualified Code(s): M81.0 - Age- related osteoporosis without current pathological fracture Plan: ?DEXA (12/2018) T score -3.3 in femoral neck. On Prolia since January 2019. Previously on raloxifene but had worsening DEXA scan so was switched to Prolia. Her most recent bone density 06/2023 shows improving bone density. Will continue with Prolia. Plan to repeat DEXA 06/2025 Patient received Prolia injection in clinic today. Of note patient had dental procedures such as crowns while on Prolia with no untoward consequences Vitamin-D level at target. Continue current calcium and vitamin-D dose We discussed weight-bearing exercises for osteoporosis. Labs before next visit in 6 months. Prolia injection in the same day ? (2) Poor balance: Code(s): R26.89 - Other abnormalities of gait and mobility Category: Medical Plan: PT/OT referral discussed again today. Patient declines again Plan I spent 27 minutes reviewing patient's chart, evaluating patient, ordering diagnostic workup, counseling patient and documenting in the chart Orders: Orders Basic Metabolic Panel 6 Months M81.0 - Age-related osteoporosis without current pathological fracture Vitamin D 25-OH Total 6 Months Z13.21 - Encounter for screening for nutritional disorder AMB Denosumab Injection Patient Supplied Today M81.0 - Age-related osteoporosis without current pathological fracture Medications: New Prolia (denosumab) 60 mg subcut ONCE 1 mL 0RF NS M81.0 - Age-related osteo porosis without current pathological fracture Coding Level of Care Code Est Pt Level 3 (38698) Diagnoses Age-related osteoporosis without current pathological fracture M81.0 Osteoporosis type: age-related Presence of current pathological fracture: without current pathological fracture Poor balance R26.89
--- OUTSIDE RECORDS SUMMARY | 2024-01-31 09:08 | XMS_ITS | Patient Health Record ---
Author Organization [facility] Address [address] [place] [address] Care Team Providers Care Geospatial Systems Integrator Name Role Phone Jabier Santamaria MD Primary Care Provider Isaac Gutierrez [phone] REASON FOR REFERRAL No Information SOCIAL HISTORY Sex Assigned At : Social History Observation Description Sex Assigned At Unknown PLAN OF TREATMENT No Information Insurance Providers Payer Name Payer Address Payer Phone Subscriber Number Group Number Insured Name Patient Relationship to Insured Coverage Start Date Coverage End Date MEDICARE OF [place] [address] [place] [id number] NEDA WEBB Self - patient is the insured MEDICAID OF [facility] [address] [place] [address] [id number] NEDA WEBB Self - patient is the insured
[2024-01-31 09:13] VITALS: BP 134/62; PULSE 80; O2SAT 98
== END 2024-01-31 09:41 | disposition home or self-care (01) ==
PROVIDERS: PCP Internal Medicine; Visit Provider Student in an Organized Health Care Education/Training Program
DX: M81.0 Age-related osteoporosis without current pathological fracture (principal); R26.89 Other abnormalities of gait and mobility
CPT/HCPCS: 99213

== ENCOUNTER → 2024-01-31 08:59 | Outpatient (BNVA) | payer MEDICARE, MEDICAID, SELFPAY | PROVIDERS: PCP Internal Medicine; Visit Provider Student in an Organized Health Care Education/Training Program | DX: M81.0 Age-related osteoporosis without current pathological fracture (principal); R26.89 Other abnormalities of gait and mobility | CPT/HCPCS: 96372; 99212; J0897 ==

== ENCOUNTER 2024-06-06 09:00 | Outpatient (AMB) | payer MEDICARE, MEDICAID, SELFPAY ==
--- OUTSIDE RECORDS SUMMARY | 2024-06-06 09:32 | XMS_ITS | Patient Health Record ---
Author Organization [facility] Address [address] [place] [address] Care Team Providers Care Rn Training Name Role Phone Jabier Santamaria MD Primary Care Provider Isaac Gutierrez Unavailable [phone] Reason For Referral No Information Plan Of Treatment No Information Insurance Providers Payer Name Payer Address Payer Phone Subscriber Number Group Number Insured Name Patient Relationship to Insured Coverage Start Date Coverage End Date MEDICARE OF [place] [address] [place] [id number] [phone] [id number] NEDA WEBB Self - patient is the insured MEDICAID OF [facility] [address] [place] [phone] [id number] NEDA WEBB Self - patient is the insured
--- NOTE | 2024-06-06 10:03 | MHC.OFFVIS ---
Intake Visit Reasons: 9M f/u r/s Intake Note: Patient presents today for a 9 month follow up Urology Meds- None Allergies to Antibiotic- No Known Allergies Blood Thinner- None Natural History Collections Curator Required: No Accompanied by: Self / Same As Patient Allergies Latex Gloves Allergy (Intermediate, Uncoded 02/25/24 11:16) edema Medication List - Last Reconciled 06/06/24 by Moises Mueller MD calcium carbonate 600 mg PO DAILY cholecalciferol (vitamin D3) 25 mcg PO DAILY denosumab (Prolia) 60 mg subcut [id number] axeoajzd-gcr-XC-lycopen-lutein 0.4 mg-300 mcg- 250 mcg (Centrum Silver) 1 tab PO DAILY rosuvastatin 10 mg PO DAILY HPI Comments Details: 06/06/24--Yanci is a 73-year-old female who presents to the office for follow-up, overactive bladder symptoms, irritative voiding symptoms and microscopic hematuria. She had a renal ultrasound done, 05/07/2023 kidneys were evaluated and within normal limits. History of Present Illness The patient is a 73-year-old female presenting with urinary symptoms including hematuria and frequency. She notes a trace amount of blood in her urine, which aligns with a family history of similar benign findings. There is a mention of a possible unresolved urinary tract infection from the past, as well as frequent urination worsened by certain foods. She has been managing these symptoms with cranberry juice and expresses no significant concern. Additionally, she reports having cold symptoms which she does not attribute to COVID-19 due to recent negative test history and symptom resolution. Her medication and vitamin regimen remain unchanged. Urinary Symptoms Review - Trace hematuria, historically consistent and not concerning. - Frequent urination. - History of possible urinary tract infection. - Dietary irritants contributing to urinary symptoms. - Consideration of using a gel treatment for urinary control. - Use of cranberry juice for urinary symptom relief. Results - Labs: Trace amount of blood in urine, considered minimal. Discussion Notes During our discussion, we reviewed the patient's urinary symptoms, including hematuria and frequent urination. Given the minimal blood noted in urine and the family history of benign hematuria, I reassured the patient of its low concern. We discussed dietary modifications to minimize bladder irritants and considered cranberry juice as a positive management strategy. While the patient mentioned her sister's interest in gel treatments, we opted not to pursue immediate interventions, focusing on monitoring her symptoms. For the cold symptoms, I advised considering testing if they persist but deferred immediate action given the improvement in condition. Plan For the primary issues of hematuria and urinary frequency, we are maintaining a conservative approach by monitoring symptoms and continuing dietary modifications. The patient's current regimen of cranberry juice appears beneficial. No immediate interventions were warranted, aligning with her familial history of benign hematuria. A follow-up is set for the next year unless any changes occur, ensuring consistent oversight of her urinary health. Patient Instructions - Continue avoiding foods that irritate your bladder. - Maintain the use of cranberry juice for urinary health. - Monitor any changes in urinary symptoms and report them. - Schedule routine follow-up in a year unless there are new symptoms. - Consider testing for your cold if symptoms persist. Patient was informed and verbally consented to the use of an ambient scribe for clinic note documentation during this visit. 05/17/23--Yanci is a 71-year-old female who presents to the office for follow-up, overactive bladder symptoms, irritative voiding symptoms and microscopic hematuria. She had a renal ultrasound done, 05/07/2023 kidneys were evaluated and within normal limits. In discussion with the patient today she states that some ascitic foods cause her to have burning with urination and she has used the bsaj-stq-gdyfxcd azo tablets which helped. She occasionally will get some urge incontinence if she can not get to the bathroom in time she does get up at night to urinate but falls right back to sleep. She is on Prolia for osteoporosis and takes calcium supplements. She states she did not use the Vagifem for long due to concerns for side effects. She is comfortable with her urinary symptoms at this time she has not interested in any medication. Plan Behavioral modification, continue to avoid dietary bladder irritants. Review of chart 05/25/2022-- 71-year-old female being followed for OAB, has infrequent episodes of dribbling if she is unable to get to the bathroom in time. She is up at night 3-4 times to urinate. Denies dysuria. The patient is a non-smoker. Evaluation today: Blood: 1+. Leukocytes: negative. Bladder scan PVR: 73 mL. Plan--Nocturia. Renal US prior was ordered. Microscopic Hematuria. Urine for cytology was ordered. Cystoscopy procedure was discussed. Follow-up for office cystoscopy. OAB. Cont vaginal estradiol 05/22/21-- with CYTOGENETICIST Yris Mac--70-year old diabetic female seen for OAB was prescribed with Myrbetriq, however did not fill it because she was worried about getting constipation from medication. She was also instructed to use estradiol cream three times a week. 05/17/2023--Plan Behavioral modification, continue to avoid dietary bladder irritants. PFSH Medical History Urinary incontinence Osteoporosis Family History Sister Ovarian cancer Social History Household Members: Family Alcohol intake: never Patient Tobacco Use Status: Never used Tobacco Sexual orientation: Straight/Heterosexual Gender identity: Female Female Reproductive History Menstrual Age of Menarche: 12 Results AMB Urinalysis, Automated UA Leukoctes 0 Tulio/uL Last Edit by Cassie Lopez on 06/06/24 16:29 UA Nitrite Negative Last Edit by Cassie Lopez on 06/06/24 16:29 UA Urobilinogen 0.2 mg/dL Last Edit by Cassie Lopez on 06/06/24 16:29 UA Protein 0 mg/dL Last Edit by Cassie Lopez on 06/06/24 16:29 UA pH 6.5 Last Edit by Cassie Lopez on 06/06/24 16:29 UA Blood 10 [place]/uL Last Edit by Cassie Lopez on 06/06/24 16:29 UA Specific [place] 1.005 Last Edit by Cassie Lopez on 06/06/24 16:29 UA Ketone Negative Last Edit by Cassie Lopez on 06/06/24 16:29 UA Bilirubin 0 mg/dL Last Edit by Cassie Lopez on 06/06/24 16:29 UA Glucose 0 mg/dL Last Edit by Cassie Lopez on 06/06/24 16:29 Assessment & Plan Assessment & Plan Orders: Orders AMB Urinalysis Automated Today Z13.9 - Encounter for screening, unspecified Coding
== END 2024-06-06 10:29 | disposition home or self-care (01) ==
LOC: HO.HUSH 09:01
PROVIDERS: PCP Internal Medicine; Visit Provider Urology
DX: Z13.9 Encounter for screening, unspecified (principal)

== ENCOUNTER → 2024-06-06 09:00 | Outpatient (BNVA) | payer MEDICARE, MEDICAID, SELFPAY | PROVIDERS: PCP Internal Medicine; Visit Provider Urology | DX: N32.81 Overactive bladder (principal); N39.41 Urge incontinence; N30.11 Interstitial cystitis (chronic) with hematuria | CPT/HCPCS: 81003; 99212 ==

== ENCOUNTER 2024-07-05 07:15 | Outpatient (AMB) | payer MEDICARE, MEDICAID, SELFPAY ==
[2024-07-05 07:43] VITALS: BP 114/70
--- NOTE | 2024-07-05 07:43 | A.OFFPC_ITS ---
Vital Signs 07/05/24 07:43 Height 5 ft 3 in Weight 113 lb BMI 20.0 BP 114/70 Blood Pressure Location Lt brachial Position Sitting Intake Visit Reasons: establish care - see comments Boiler Plant Operator Required: No Accompanied by: Self / Same As Patient Allergies Latex Gloves Allergy (Intermediate, Uncoded 07/05/24 07:54) edema Medication List - Last Reconciled 07/05/24 by Oanh Soto MD calcium carbonate 600 mg PO DAILY cholecalciferol (vitamin D3) 25 mcg PO DAILY coenzyme Q10 (Co Q-10) 200 mg PO DAILY denosumab (Prolia) 60 mg subcut [id number] tuglcysk-eek-MU-lycopen-lutein 0.4 mg-300 mcg- 250 mcg (Centrum Silver) 1 tab PO DAILY rosuvastatin 10 mg PO DAILY Tobacco use date assessed: 07/05/24 Fall risk assessment: No Falls in past year Last assessed Fall Risk: 07/05/24 Dental Screening Dental Screen Date: 07/05/24 Did you have a dental visit in the last 12 months?: Yes Did you have a dental problem in the last 6 months where you did not have access to dental care?: No Was dental information given to patient?: Patient has dentist HPI HPI Comments History of Present Illness Details The patient is a 73-year-old female presenting with treatment-resistant persistent dry cough following a recent recovery from a brief cold. The cough is notably dry, with no expectoration, unproductive to various lchv-ooi-ygmjiwf rem edies. She also reports she is prescribed Prolia due to existing osteoporosis and is anticipating cataract surgery the following month. The patient is on treatment for hyperlipidemia and received the mammogram in December, with the next appointment due soon. Other pertinent health preventive measures include regular vitamin supplementation and past pneumonia vaccination. On vitamin-D supplementation for her low vitamin-D. Cologuard will be order in the next office visit. [facility] Medical History (Updated 07/05/24 @ 08:17 by Oanh Soto MD) Urinary incontinence Osteoporosis Surgical History No pertinent past surgical history Family History (Updated 07/05/24 @ 08:02 by Oanh Soto MD) Sister Ovarian cancer Father Diabetes mellitus Mother Diabetes mellitus Social History Household Members: Family Housing: House Alcohol intake: never Patient Tobacco Use Status: Never used Tobacco e-Cigarette/Vaping Use: Never Used Second Hand Smoke Exposure: No service: No Current occupational status: retired Sexual orientation: Straight/Heterosexual Gender identity: Female Cognitive needs: No Hearing needs: No Vision needs: Yes Female Reproductive History Menstrual Age of Menarche: 12 Questionnaire PHQ-9 Over the last 2 weeks, how often have you been bothered by any of the following problems? 1. Little interest or pleasure in doing things: not at all 2. Feeling down, depressed, or hopeless: not at all 3. Trouble falling or staying asleep, or sleeping too much: not at all 4. Feeling tired or having little energy: not at all 5. Poor appetite or overeating: not at all 6. Feeling bad about yourself - or that you are a failure or have let yourself or your family down: not at all 7. Trouble concentrating on things, such as reading the newspaper or watching television: not at all 8. Moving or speaking so slowly that other people could have noticed. Or the opposite - being so fidgety or restless that you have been moving around a lot more than usual: not at all 9. Thoughts that you would be better off or of hurting yourself in some way: not at all Total score: 0 Depression Screening Interpretation: Negative Depression Screening Done: Yes 89717 - PHQ-9 Billing: Yes Source: Developed by Drs. Isaac Fish, Kimberley Wylie, Syed Davey and colleagues, with an educational selin from [employer]. Thrive Questionnaire Date Thrive assessed: 07/05/24 I am a: Patient What is your living situation today?: I have a steady place to live Within the past 12 months, did the food you bought not last and you didn't have the money to get more?: Sometimes True Within the past 12 months, did you worry whether your food would run out before you got money to buy more?: Sometimes True Do you have trouble paying for medicines?: No Do you have trouble getting transportation to medical appointments?: No Do you have trouble paying your heating and electricity bill?: No Do you have trouble taking care of your child, family member or friend?: No Do you have trouble with day-to-day activities such as bathing, preparing meals, shopping, managing finances, etc.?: No Are you currently unemployed and looking for a job?: Yes Are you interested in more education?: No Please select the resources that you would like help with: None Currently or been in a relationship where the following occur: No concerns reported THRIVE Score: 2 AUDIT C Alcohol Use Questionnaire (AUDIT-C) 1. How often do you have a drink containing alcohol?: Never Total Score: 0 Score Reviewed/Action Taken: No BENJAMIN-7 AMB Questionnaire BENJAMIN-7 Date BENJAMIN - 7 assessed: 07/05/24 Feeling nervous, anxious, or on edge: 1 = Several days Not being able to stop or control worryin = Not at all Worrying too much about different things: 0 = Not at all Trouble relaxin = Not at all Being so restless that it is hard to sit still: 0 = Not at all Becoming easily annoyed or irritable: 0 = Not at all Feeling afraid as if something awful might happen: 0 = Not at all Total BENJAMIN-7 score (0-4 normal; 5-9 mild; 10-14 moderate; 15-21 severe): 1 Source: Developed by Drs. Isaac Fish, Kimberley Wylie, Syed Davey and colleagues, with an educational selin from [employer]. BENJAMIN-7 Assessment Billing BENJAMIN-7 Assessment Tool: BENJAMIN-7 Assessment 64465 Review of Systems Const All systems reviewed & are unremarkable except as noted in HPI and below Card Denies chest pain at rest, Denies chest pain with activity, Denies edema, Denies irregular heart rhythm, Denies claudication, Denies dyspnea, Denies dyspnea on exertion, Denies orthopnea, Denies paroxysmal nocturnal dyspnea and Denies slow heart rate Resp Denies cough, Denies dyspnea and Denies dyspnea on exertion Physical exam (Primary Care) Vital Signs: Last Vital Signs BP 114/70 07/05/24 07:43 BMI result Body Mass Index 20.0 Tobacco/Smoking Status: Tobacco use Status Tobacco use date assessed 07/05/24 07/05/24 07:53 Patient Tobacco Use Status Never used Tobacco 07/05/24 07:53 e-Cigarette/Vaping Use Never Used 07/05/24 07:53 PHQ-9: PHQ-9 Score PHQ-9: Total score 0 07/05/24 07:53 Depression Screening Interpretation: Negative Thrive Assessment: Date of Thrive Assessment Date Thrive assessed 07/05/24 07/05/24 07:53 Currently or been in a relationship where the following occur: No concerns reported Resp Effort & Inspection: normal respiratory effort Auscultation: clear to auscultation bilaterally Cardio Jugular venous distension: no JVD Rate: regular rate Rhythm: regular rhythm Heart sounds: S1 normal heart sound present and S2 normal heart sound present Extrem General: Yes full ROM Coding Level of Care Code Est Pt Level 4 (46568) Complex EM visit Add On G2211 Diagnoses Cough R05.9 Age-related osteoporosis without current pathological fracture M81.0 Osteoporosis type: age-related Presence of current pathological fracture: without current pathological fracture Hypovitaminosis D E55.9 Pure hypercholesterolemia E78.00 Additional Codes PHQ-9 - 95857 - PHQ-9 Billing: Yes ([id number]) BENJAMIN-7 Assessment Billing - BENJAMIN-7 Assessment Tool: BENJAMIN-7 Assessment 47321 ([id number]) Time Spent (min) 23 Assessment & Plan Assessment & Plan (1) Cough: Code(s): R05.9 - Cough, unspecified Category: Medical (2) Osteoporosis: Comment: Raloxifene: Prolia: December 2018- present Code(s): M81.0 - Age-related osteoporosis without current pathological fracture Category: Medical Qualifiers: Osteoporosis type: age-related Presence of current pathological fracture: without current pathological fracture Qualified Code(s): M81.0 - Age- related osteoporosis without current pathological fracture (3) Hypovitaminosis D: Code(s): E55.9 - Vitamin D deficiency, unspecified Category: Medical (4) Pure hypercholesterolemia: Code(s): E78.00 - Pure hypercholesterolemia, unspecified Category: Medical Plan Continual encouragement towards her active lifestyle and adherence to her supplementary regimen is recommended. DEXA for 2025. Cologuard order in the next 6 months. Patient was informed and verbally consented to the use of an ambient scribe for clinic note documentation during this visit. During the consult, I discussed with the patient her persistent dry cough and the use of a cough suppressant to alleviate symptoms temporarily. I emphasized the importance of maintaining her routine Prolia injections for osteoporosis and keeping track of her upcoming cataract surgery. I reviewed her maintained control of blood pressure and advised future reexamination of her cholesterol profile. We confirmed her history of vaccinations, specifically the pneumonia vaccine, which does not require repetition. Her regimen of multivitamins, calcium, and vitamin D was encouraged for continued use, considering her osteoporotic condition. Follow-up conversations centered on assurance for her surgical procedure preparedness and management adherence in coordination with her screening timeline. Orders: Orders Comprehensive [place]. Panel Fast 6 Months M81.0 - Age-related osteoporosis without current pathological fracture Vitamin D 25-OH Total 6 Months E55.9 - Vitamin D deficiency, unspecified Lipid Panel 6 Months E78.5 - Hyperlipidemia, unspecified Medications: New benzonatate 100 mg PO BID 5 days 10 caps 0RF Patient Instructions: - Take the prescribed cough suppressant as directed for cough relief. - Continue daily exercise, maintaining current activity levels. - Keep up with calcium, vitamin D, CoQ10, and multivitamin supplements. - Attend all pre-scheduled appointments for cataract surgery and updated mammogram. - Monitor blood pressure periodically. - Seek immediate care if symptoms worsen or other concerning symptoms arise. - Remain cautious regarding latex allergy.
== END 2024-07-05 08:08 | disposition home or self-care (01) ==
LOC: HO.HMCH 07:16
PROVIDERS: PCP Internal Medicine; Visit Provider Internal Medicine
DX: R05.9 Cough, unspecified (principal); M81.0 Age-related osteoporosis without current pathological fracture; E55.9 Vitamin D deficiency, unspecified; E78.00 Pure hypercholesterolemia, unspecified

== ENCOUNTER → 2024-07-05 07:15 | Outpatient (BNVA) | payer MEDICARE, MEDICAID, SELFPAY | PROVIDERS: PCP Internal Medicine; Visit Provider Internal Medicine | DX: R05.9 Cough, unspecified (principal); M81.0 Age-related osteoporosis without current pathological fracture; E55.9 Vitamin D deficiency, unspecified; E78.00 Pure hypercholesterolemia, unspecified | CPT/HCPCS: 96127; 99212 ==

== ENCOUNTER 2024-07-06 09:22 | Outpatient (AMB) | payer MEDICARE, MEDICAID, SELFPAY ==
[2024-07-06 09:34] VITALS: BP 128/70; PULSE 92; TEMP 36.3; O2SAT 99; BMI 20.1
--- NOTE | 2024-07-06 09:34 | A.OFFPC_ITS ---
Vital Signs 07/06/24 09:34 Height 5 ft 3 in Weight 113 lb 4 oz BMI 20.1 BP 128/70 Blood Pressure Location Lt brachial Position Sitting Pulse 92 Pulse Source Pulse Oximeter Temp 97.3 F Temp Source Temporal Artery Scan Pulse Oximetry (%) 99 Oxygen Delivery Method Room Air Intake Visit Reasons: PREOP CATARACT Intake Note: Patient is here for a Pre-op for Cataract surgery scheduled with Dr. Spence on 07/17/24 for right eye and 07/31 for the left eye. [id number] Quality Assurance Assessor Required: No Accompanied by: Self / Same As Patient Allergies Latex Gloves Allergy (Intermediate, Uncoded 07/06/24 09:46) edema Medication List - Last Reconciled 07/06/24 by Shiela Alvarez PA-C benzonatate 100 mg PO BID 5 days calcium carbonate 600 mg PO DAILY cholecalciferol (vitamin D3) 25 mcg PO DAILY coenzyme Q10 (Co Q-10) 200 mg PO DAILY denosumab (Prolia) 60 mg subcut [id number] fypjbvnh-dxy-QR-lycopen-lutein 0.4 mg-300 mcg- 250 mcg (Centrum Silver) 1 tab PO DAILY rosuvastatin 10 mg PO DAILY Tobacco use date assessed: 07/05/24 Fall risk assessment: No Falls in past year Last assessed Fall Risk: 07/06/24 Dental Screening Dental Screen Date: 07/05/24 HPI PREOP CATARACT HPI Details 73-year-old female with past medical his tory of osteoporosis, hypercholesterolemia and overactive bladder last seen by Dr. Valles 07/05/2024 coming in for preoperative visit.? Patient is scheduled to have cataract surgery with Dr. Spence 07/17/2024. Patient has no history of NH, CVA, CHF or diabetes mellitus. Her blood pressure is well controlled 128/70 in the office today. She has never had surgery or anesthesia. Patient does endorse having a dry cough and has been persistent for the last month and was recently evaluated given benzonatate to be used as needed. Lungs clear to auscultation today on exam low suspicion for infectious cause at this time. PFSH Medical History Urinary incontinence Osteoporosis Surgical History No pertinent past surgical history Family History Sister Ovarian cancer Father Diabetes mellitus Mother Diabetes mellitus Social History Household Members: Family Housing: House Alcohol intake: never Patient Tobacco Use Status: Never used Tobacco e-Cigarette/Vaping Use: Never Used Second Hand Smoke Exposure: No service: No Current occupational status: retired Sexual orientation: Straight/Heterosexual Gender identity: Female Cognitive needs: No Hearing needs: No Vision needs: Yes Female Reproductive History Menstrual Age of Menarche: 12 Questionnaire Thrive Questionnaire Date Thrive assessed: 07/05/24 I am a: Patient What is your living situation today?: I have a steady place to live Within the past 12 months, did the food you bought not last and you didn't have the money to get more?: Sometimes True Within the past 12 months, did you worry whether your food would run out before you got money to buy more?: Sometimes True Do you have trouble paying for medicines?: No Do you have trouble getting transportation to medical appointments?: No Do you have trouble paying your heating and electricity bill?: No Do you have trouble taking care of your child, family member or friend?: No Do you have trouble with day-to-day activities such as bathing, preparing meals, shopping, managing finances, etc.?: No Are you currently unemployed and looking for a job?: Yes Are you interested in more education?: No Please select the resources that you would like help with: None Currently or been in a relationship where the following occur: No concerns reported THRIVE Score: 2 BENJAMIN-7 AMB Questionnaire BENJAMIN-7 Date BENJAMIN - 7 assessed: 07/05/24 Source: Developed by Drs. Isaac Fish, Kimberley Wylie, Syed Davey and colleagues, with an educational selin from [employer]. Review of Systems Const Denies body aches, Denies chills, Denies fever(s), Denies headache(s) and Denies poor appetite Eyes Reports no additional complaints ENT Denies dysphagia, Denies dizziness, Denies headache(s) and Denies odynophagia Card Denies chest pain, Denies syncope, Denies edema, Denies irregular heart rhythm, Denies lightheadedness and Denies dyspnea Resp Denies cough and Denies dyspnea GI Denies abdominal pain, Reports constipation (occasionally), Denies dysphagia, Denies diarrhea, Denies nausea, Denies odynophagia and Denies vomiting Reports no additional complaints Musc Reports no additional complaints and Denies abnormal gait Skin/Breast Reports system reviewed and no additional complaints, except as documented Neuro Denies abnormal gait, Denies dizziness, Denies syncope and Denies headache(s) Psych Reports no additional complaints Physical exam (Primary Care) Vital Signs: Last Vital Signs Temp 97.3 F 07/06/24 09:34 Pulse 92 07/06/24 09:34 BP 128/70 07/06/24 09:34 Pulse Ox 99 07/06/24 09:34 Oxygen Delivery Method Room Air 07/06/24 09:34 BMI result Body Mass Index 20.1 Tobacco/Smoking Status: Tobacco use Status Tobacco use date assessed 07/05/24 07/06/24 09:38 Patient Tobacco Use Status Never used Tobacco 07/06/24 09:38 e-Cigarette/Vaping Use Never Used 07/06/24 09:38 Thrive Assessment: Date of Thrive Assessment Date Thrive assessed 07/05/24 07/06/24 09:38 Currently or been in a relationship where the following occur: No concerns reported Const General: cooperative, healthy appearing, comfortable and no acute distress Orientation/consciousness: patient oriented x3 HENMT Head: Yes normocephalic Ears: hearing grossly normal bilaterally General nose exam: Normal external nose present Eyes General: appearance normal, both eyes and all related structures Conjunctivae: conjunctivae normal Neck Neck: Yes full ROM and Yes no lymphadenopathy Resp Effort & Inspection: normal respiratory effort Auscultation: clear to auscultation bilaterally, no crackles, no rales, no rhonchi and no wheezes Cardio Rate: regular rate Rhythm: regular rhythm Skin General skin exam: no rashes or lesions noted Neuro General: patient oriented x3 Gait exam (Neuro): Normal gait present Extrem General: Yes normal to inspection, Yes full ROM and No edema Psych Affect: normal affect Attitude: cooperative Insight: Good insight present (Psych) Judgement: Good judgement present (Psych) Coding Level of Care Code Est Pt Level 3 (76982) Diagnoses Pre-op exam Z01.818 Assessment & Plan Assessment & Plan (1) Pre-op exam: Code(s): Z01.818 - Encounter for other preprocedural examination Category: Medical Plan: Regarding preop clearance, the patient is at moderate risk for proposed surgery due to age. Reviewed with the patient that no surgery is completely free of risk and that this examination is to assist the surgeon in reviewing informed consent. blood work evaluated. No further workup needed at this time and may proceed with the contemplated procedure. Thank you very much for letting me participate in the care of this patient Plan This note was constructed using voice recognition software. While every effort has been made to ensure accuracy and gis professor, still areas may have been included sometimes these areas may affect the content or meeting of the given symptoms. Total time spent caring for the patient today was 20 minutes. This includes time spent before the visit reviewing the chart, time spent during the visit, and time spent after the visit and documentation. Orders: Orders Basic Metabolic Panel Today Z01.818 - Encounter for other preprocedural examination Complete Blood Count Auto Diff Today Z01.818 - Encounter for other preprocedural examination Hemoglobin A1c Today Z01.818 - Encounter for other preprocedural examination
--- OUTSIDE RECORDS SUMMARY | 2024-07-06 09:36 | XMS_ITS | Patient Health Record ---
Author Organization [facility] Address [address] [place] [address] Care Team Providers Care Claim Analyst Name Role Phone Jabier Santamaria MD Primary Care Provider Isaac Gutierrez Unavailable [phone] Reason For Referral No Information Plan Of Treatment No Information Insurance Providers Payer Name Payer Address Payer Phone Subscriber Number Group Number Insured Name Patient Relationship to Insured Coverage Start Date Coverage End Date MEDICARE OF [place] [address] [place] [id number] NEDA WEBB Self - patient is the insured MEDICAID OF [facility] [address] [place] [place] [address] [id number] NEDA WEBB Self - patient is the insured
== END 2024-07-06 10:07 | disposition home or self-care (01) ==
LOC: HO.HMCH 09:22
PROVIDERS: PCP Internal Medicine
DX: Z01.818 Encounter for other preprocedural examination (principal)

== ENCOUNTER 2024-07-06 09:22 | Outpatient (REF) | payer MEDICARE, MEDICAID, SELFPAY ==
[2024-07-06 10:55] LABS: MANUAL DIFF FLAG NO
[2024-07-06 11:23] LABS: Basophils Absolute Auto 0.1 X10*3/uL (0.0-0.2); Basophils Percent Auto 0.8 % (0-2); Eosinophils Absolute Auto 0.2 X10*3/uL (0.0-0.4); Eosinophils Percent Auto 2.6 % (0-4); Hematocrit 37.1 % (37.0-47.0); Hemoglobin 12.3 g/dl (12.0-16.0); Imm Gran Abs Auto 0.03 X10*3/uL (0.00-0.03); Imm Gran Pct Auto 0.5 % (0.0-0.4); Lymphocytes Absolute Auto 1.4 X10*3/uL (1.2-4.9); Lymphocytes Percent Auto 21.7 % (20-40); Mean Corpuscular HGB Conc 33.2 g/dl (31.0-35.0); Mean Corpuscular Hemoglobin 32.4 pg (27.0-33.0); Mean Corpuscular Volume 97.6 fL (80.0-98.0); Mean Platelet Volume 9.2 fL (9.4-12.3); Monocytes Absolute Auto 0.8 X10*3/uL (0.1-1.2); Monocytes Percent Auto 11.4 % (2-11); Neutrophils Absolute Auto 4.2 x10*3/uL (2.0-8.3); Platelet Count 249 X10*3/uL (160-400); Red Cell Distribution Width 13.6 % (11.0-16.0); White Blood Count 6.6 X10*3/uL (4.8-10.8)
[2024-07-06 11:45] LABS: Estimated Average Glucose 97 mg/dL; Total Hemoglobin (HGBA1C) 3228.2837 umol/L
[2024-07-06 12:44] LABS: Alanine Aminotransferase 46 U/L (0-31); Albumin Level 4.8 g/dL (3.5-5.0); Alkaline Phosphatase 70 U/L (39-117); Anion Gap 11 (12-20); Aspartate Amino Transferase 38 U/L (5-31); Bilirubin Total 0.6 mg/dL (0.0-1.0); Blood Urea Nitrogen 11 mg/dL (9-16); Calcium 9.8 mg/dL (8.4-10.2); Carbon Dioxide 27 mmol/L (22-29); Chloride 107 mmol/L (96-108); Estimated Glomerular Filt Rate > 60; Glucose Random 83 mg/dL (60-115); Potassium 4.3 mmol/L (3.3-5.1); Sodium 141 mmol/L (135-145); Total Protein 7.7 g/dL (6.5-8.0)
[2024-07-11 16:08] LABS: Vitamin D 25-OH, D2 6 ng/mL; Vitamin D 25-OH, D3 42 ng/mL; Vitamin D 25-OH, Total 48 ng/mL (30-100)
== END 2024-07-06 09:23 | disposition home or self-care (01) ==
LOC: HO.LAB 09:22
PROVIDERS: Student in an Organized Health Care Education/Training Program; PCP Internal Medicine
DX: Z01.818 Encounter for other preprocedural examination (principal); M81.0 Age-related osteoporosis without current pathological fracture; E55.9 Vitamin D deficiency, unspecified; Z13.1 Encounter for screening for diabetes mellitus
CPT/HCPCS: 36415; 80053; 82306; 83036; 85025; 99212

== ENCOUNTER 2024-07-17 06:42 | Day surgery (SDC) | payer MEDICARE, MEDICAID, SELFPAY ==
--- OUTSIDE RECORDS SUMMARY | 2024-05-26 15:00 | XMS_ITS | Patient Health Record ---
Author Organization [facility] Address [address] [place] [address] Care Team Providers Care Grievance And Appeals Coordinator Name Role Phone Jabier Santamaria MD Primary Care Provider Isaac Gutierrez Unavailable [phone] Reason For Referral No Information Plan Of Treatment No Information Insurance Providers Payer Name Payer Address Payer Phone Subscriber Number Group Number Insured Name Patient Relationship to Insured Coverage Start Date Coverage End Date MEDICARE OF [place] [address] [place] [id number] [phone] [id number] NEDA WEBB Self - patient is the insured MEDICAID OF [facility] [address] [place] [address] [id number] NEDA WEBB Self - patient is the insured
[2024-07-12 09:52] VITALS: BMI 20.1
[2024-07-17 07:52] VITALS: BMI 20.2
[2024-07-17 08:03] VITALS: BP 148/72; PULSE 84; RESP 16; TEMP 36.6; O2SAT 98
[2024-07-17] MEDS: Cyclopentolate 1 % Ophth Sol 2 ML DRPBTL 1 DROP EYE-RIGHT ×3 (08:05→08:09)
[2024-07-17] MEDS: Tetracaine HCl/PF 0.5% Oph Sol 4 ML DROPS 1 DROP EYE-RIGHT (08:05)
[2024-07-17] MEDS: Tropicamide 1 % Ophth Sol 3 ML BTL 1 DROP EYE-RIGHT ×3 (08:06→08:10)
[2024-07-17] MEDS: Ketorolac Tromethamine 0.5% Op 5 ML DROPS 1 DROP EYE-RIGHT ×3 (08:07→08:11)
[2024-07-17] MEDS: Phenylephrine HCL 2.5% Oph SoL 2 ML BOTTLE 1 DROP EYE-RIGHT ×3 (08:07→08:11)
[2024-07-17] MEDS: Lactated Ringers 500 ML 50 ML IV (08:12)
--- NOTE | 2024-07-17 08:25 | P.CONAN_ITS ---
Documented by User: Julianna Patel NP 07/13/24 14:16 HPI - Anesthesia Eval Consult details Narrative: 73yo F for Right Cataract Extraction IOL Insertion No previous cataract on record PMFSH Active Problems Active Problems: All Active Problems Transaminitis (Acute) Pre-op exam (Acute) Cough (Acute) Pure hypercholesterolemia (Acute) Hypovitaminosis D (Acute) Poor balance (Acute) Interstitial cystitis (chronic) with hematuria (Acute) Encounter for vitamin deficiency screening (Acute) Urge incontinence (Acute) Microscopic hematuria (Acute) Nocturia more than twice per night (Acute) OAB (overactive bladder) (Acute) Well woman exam (Acute) Urinary incontinence (Acute) Osteoporosis (Acute) Past Medical History Medical History (Updated 07/12/24 @ 09:50 by Viji Moreland RN) Hypercholesteremia Cataracts, both eyes Urinary incontinence Osteoporosis Family History Family History Sister Ovarian cancer Father Diabetes mellitus Mother Diabetes mellitus Surgical History Surgical History (Updated 07/17/24 @ 07:51 by Ellen Garcia RN) History of skin surgery Hx of colonoscopy (2009) Social History Social History Household Members: Family Housing: House Alcohol intake: never Patient Tobacco Use Status: Never used Tobacco e-Cigarette/Vaping Use: Never Used Second Hand Smoke Exposure: No Use of substances other than those prescribed or required for medical reasons: No Are you DNR?: No Advance Directives: No Advance Directives Information Provided: Yes Patient : No : No Poor oral hygiene: No service: No Current occupational status: retired Sexual orientation: Straight/Heterosexual Gender identity: Female Cognitive needs: No Hearing needs: No Vision needs: Yes Meds Allergies Allergy/AdvReac Type Severity Reaction Status Date / Time Latex Gloves Allergy Intermediate edema Uncoded 07/06/24 09:46 Home Medications ?Medication ?Instructions ?Recorded ?Confirmed ?Last Taken ?Type calcium carbonate 600 mg PO DAILY 06/07/20 07/12/24 Unknown History cholecalciferol (vitamin D3) 25 25 mcg PO DAILY 06/07/20 07/12/24 Unknown History mcg (1,000 unit) capsule wxnbiqix-qra-maucy acid 0.4 1 tab PO DAILY 06/07/20 07/12/24 Unknown History mg-lycopene 300 mcg-lutein 250 mcg tablet (Centrum Silver) denosumab 60 mg/mL subcutaneous 60 mg subcut [id number] 12/21/23 07/12/24 Unknown History syringe (Prolia) coenzyme Q10 200 mg capsule (Co 200 mg PO DAILY 07/05/24 07/12/24 Unknown History Q-10) Exam Height,Weight and Vital Signs: Height 5 ft 3 in Weight 51.369 kg Assessment and Plan Assessment Anesthesia Assessment: Chart Reviewed Documented by User: Nida Otero DO 07/17/24 08:27 [facility] Past Medical History Medical History (Updated 07/12/24 @ 09:50 by Viji Moreland RN) Hypercholesteremia Cataracts, both eyes Urinary incontinence Osteoporosis Family History Family History Sister Ovarian cancer Father Diabetes mellitus Mother Diabetes mellitus Family history of problems with anesthesia: No Surgical History Surgical History (Updated 07/17/24 @ 07:51 by Ellen Garcia RN) History of skin surgery Hx of colonoscopy (2009) History of Problems with Anesthesia: No Social History Social History Household Members: Family Housing: House Alcohol intake: never Patient Tobacco Use Status: Never used Tobacco e-Cigarette/Vaping Use: Never Used Second Hand Smoke Exposure: No Use of substances other than those prescribed or required for medical reasons: No Are you DNR?: No Advance Directives: No Advance Directives Information Provided: Yes Patient : No : No Poor oral hygiene: No service: No Current occupational status: retired Sexual orientation: Straight/Heterosexual Gender identity: Female Cognitive needs: No Hearing needs: No Vision needs: Yes Meds Allergies Allergy/AdvReac Type Severity Reaction Status Date / Time Latex Gloves Allergy Intermediate edema Uncoded 07/06/24 09:46 Home Medications ?Medication ?Instructions ?Recorded ?Confirmed ?Last Taken ?Type calcium carbonate 600 mg PO DAILY 06/07/20 07/12/24 Unknown History cholecalciferol (vitamin D3) 25 25 mcg PO DAILY 06/07/20 07/12/24 Unknown History mcg (1,000 unit) capsule hwdufnmc-lid-unqjx acid 0.4 1 tab PO DAILY 06/07/20 07/12/24 Unknown History mg-lycopene 300 mcg-lutein 250 mcg tablet (Centrum Silver) denosumab 60 mg/mL subcutaneous 60 mg subcut [id number] 12/21/23 07/12/24 Unknown History syringe (Prolia) coenzyme Q10 200 mg capsule (Co 200 mg PO DAILY 07/05/24 07/12/24 Unknown History Q-10) Exam Exam Date and Time: 07/17/24824 Height,Weight and Vital Signs: Height 5 ft 3 in Weight 51.369 kg Vital Signs Temperature 97.9 F 07/17/24 08:03 Pulse Rate 84 07/17/24 08:03 Respiratory Rate 16 07/17/24 08:03 Blood Pressure 148/72 H 07/17/24 08:03 Pulse Oximetry 98 07/17/24 08:03 Oxygen Delivery Method Room Air 07/17/24 08:03 Temperature 97.9 F 07/17/24 08:03 Pulse Rate 84 07/17/24 08:03 Respiratory Rate 16 07/17/24 08:03 Blood Pressure 148/72 H 07/17/24 08:03 Pulse Oximetry 98 07/17/24 08:03 Oxygen Delivery Method Room Air 07/17/24 08:03 Airway Mallampati Class: I TM Dist: >3cm Neck ROM: Full Loose/Missing/Broken Teeth: No (patient denies any loose or broken teeth) Heart: S1S2 Lungs: CTAB Assessment and Plan Assessment Anesthesia Assessment: Anesthesia Plan Discussed and Chart Reviewed Final Anesthetic Review Family History of Problems with Anesthesia: No History of Problems with Anesthesia: No NPO: Yes ASA Class: II Final Preanesthetic Review: No Changes in Pt Med Stat, Meds/Allgs Chart Reviewed, Consent Obtained/Reviewed and Anes Risks/Benef Reviewed Patient Risk: Low Procedure Risk: Low Anesthetic Plan Anesthetic Plan: MAC: and Agree w/ Assess. and Plan Disposition: Standard PACU
--- NOTE | 2024-07-17 08:44 | P.PCNO_ITS ---
Ophthalmology Procedure Procedure Date of Service: 07/17/24 Ophthalmology Viscoelastic: Healon Duet Dual Pack Pro Ophthalmology Lenses: IOL Acrysof MP - MA60AC (15.5) Procedure Notes: PREOPERATIVE DIAGNOSIS: Decreased visual acuity right eye secondary to cataract POSTOPERATIVE DIAGNOSIS: Same PROCEDURE: Right cataract extraction with intraocular lens insertion SURGEON: Garret Spence M.D. ANESTHESIA: Topical/MAC ESTIMATED BLOOD LOSS: None COMPLICATIONS: None After obtaining informed consent, the patient was brought to the operating room suite and placed in the supine position. After adequate sedation per anesthesia, topical drops of Tetracaine were given to the right eye. The eye was then prepped and draped in the usual sterile fashion. The operating room microscope was then positioned over the operative eye and a lid speculum placed. A paracentesis was created. Viscoelastic was then instilled into the anterior chamber. A three plane incision was then created temporally, utilizing a 2.85 mm keratome. Capsulotomy forceps were then utilized to create a circular tear capsulotomy. Hydrodissection and hydrodelineation were carried out until adequate mobilization of the nucleus occurred. Phacoemulsification was then utilized to remove the dense central nu cleus followed by removal of the cortical material utilizing the automated aspiration irrigation unit. Viscoelastic was instilled into the posterior capsular bag followed by placement of a posterior chamber intraocular lens without difficulty. The residual Viscoelastic was then removed utilizing the automated IA machine. The wound was checked and found to be watertight. The patient tolerated the procedure well and the lid speculum was removed. Intracameral injection of Vigamox 0.1 mL followed by a subtenon injection of Kenalog-40 0.2 mL were administered. The patient will be seen in the a.m.
--- NOTE | 2024-07-17 08:44 | MHC.SHP ---
Pre-Procedural Eval Section A - 24 Hr Update-Section A only Date of Service: 07/17/24 The patient is an INPATIENT: No Changes since office visit: No Cold of Flu in the past 2 weeks, No New Medical Problems, No Changes in Medication and No Patient answered all questions The patient has been examined within 24 hours of the surgical procedure. The History & Physical has been completed within 30 days and I have reviewed it.: Yes Section B - Complete if H&P > 30 days Chief Complaint: Age-related nuclear cataract, right eye Allergies: Allergies Allergy/AdvReac Type Severity Reaction Status Date / Time Latex Gloves Allergy Intermediate edema Uncoded 07/06/24 09:46 Plan Diagnosis/Plan: Unchanged I have reviewed the history and physical and performed a pertinent physical examination on my patient. No changes have occurred unless specified. Time Spent With Patient Time: Total time managing care of this patient today ____ minutes.
[2024-07-17 09:11] VITALS: BP 130/63; PULSE 80; RESP 12; TEMP 36.8; O2SAT 100
== END 2024-07-17 09:28 | disposition home or self-care (01) ==
PROVIDERS: PCP Internal Medicine; Visit Provider Ophthalmology
PROC: (CPT 66985; principal; 2024-07-17 09:00)
DX: H25.11 Age-related nuclear cataract, right eye (principal); H52.4 Presbyopia; H18.413 Arcus senilis, bilateral; H04.123 Dry eye syndrome of bilateral lacrimal glands; E78.00 Pure hypercholesterolemia, unspecified; M81.0 Age-related osteoporosis without current pathological fracture; Z79.899 Other long term (current) drug therapy; Z91.040 Latex allergy status
CPT/HCPCS: 66984; J2250; J3301; V2630

== ENCOUNTER 2024-07-24 06:07 | Outpatient (REF) | payer MEDICARE, MEDICAID, SELFPAY ==
[2024-07-24 06:25] LABS: MANUAL DIFF FLAG NO
[2024-07-24 07:20] LABS: Basophils Absolute Auto 0.1 X10*3/uL (0.0-0.2); Basophils Percent Auto 1.2 % (0-2); Eosinophils Absolute Auto 0.3 X10*3/uL (0.0-0.4); Eosinophils Percent Auto 4.6 % (0-4); Hematocrit 37.5 % (37.0-47.0); Hemoglobin 12.3 g/dl (12.0-16.0); Imm Gran Abs Auto 0.02 X10*3/uL (0.00-0.03); Imm Gran Pct Auto 0.3 % (0.0-0.4); Lymphocytes Absolute Auto 1.2 X10*3/uL (1.2-4.9); Lymphocytes Percent Auto 19.7 % (20-40); Mean Corpuscular HGB Conc 32.8 g/dl (31.0-35.0); Mean Corpuscular Hemoglobin 32.4 pg (27.0-33.0); Mean Corpuscular Volume 98.7 fL (80.0-98.0); Mean Platelet Volume 10.2 fL (9.4-12.3); Monocytes Absolute Auto 0.5 X10*3/uL (0.1-1.2); Neutrophils Percent Auto 66.2 % (45-73); Platelet Count 220 X10*3/uL (160-400); Red Cell Distribution Width 13.4 % (11.0-16.0)
[2024-07-24 07:45] LABS: Alanine Aminotransferase 23 U/L (0-31); Albumin Level 4.6 g/dL (3.5-5.0); Alkaline Phosphatase 62 U/L (39-117); Anion Gap 12 (12-20); Aspartate Amino Transferase 26 U/L (5-31); Bilirubin Direct 0.2 mg/dL (0.0-0.5); Bilirubin Total 0.7 mg/dL (0.0-1.0); Blood Urea Nitrogen 11 mg/dL (9-16); Calcium 9.4 mg/dL (8.4-10.2); Carbon Dioxide 27 mmol/L (22-29); Chloride 108 mmol/L (96-108); Estimated Glomerular Filt Rate > 60; Glucose Random 79 mg/dL (60-115); Potassium 3.9 mmol/L (3.3-5.1); Sodium 143 mmol/L (135-145); Total Protein 7.5 g/dL (6.5-8.0)
[2024-07-24 08:14] LABS: HBS Num1 0.53 mIU/mL (0-7.99); HBc Num1 0.07 S/CO (0.00-0.79); HBsAGNum1 0.36 S/CO (0.00-0.99); Hepatitis A Antibody IgM 0.12 Index (0-0.79); Hepatitis B Core Antibody Nonreactive (Nonreactive); Hepatitis B Surface Antigen Negative (Negative); ~HepC Num1 0.11 S/CO (0.00-0.79); ~Hepatitis A Antibody IgM Nonreactive (Nonreactive); ~Hepatitis B Surface Antibody NONREACTIVE (Nonreactive); ~Hepatitis C Antibody Nonreactive (Nonreactive)
[2024-07-27 13:57] LABS: Mitochondrial Antibodies NEGATIVE (NEGATIVE)
== END 2024-07-24 06:08 | disposition home or self-care (01) ==
LOC: HO.LAB 06:07
PROVIDERS: PCP Internal Medicine; Visit Provider Student in an Organized Health Care Education/Training Program
DX: Z01.818 Encounter for other preprocedural examination (principal); M81.0 Age-related osteoporosis without current pathological fracture; E55.9 Vitamin D deficiency, unspecified; R74.01 Elevation of levels of liver transaminase levels
CPT/HCPCS: 36415; 80048; 80076; 85025; 86381; 86704; 86706; 86709; 86803; 87340

== ENCOUNTER 2024-07-31 07:20 | Day surgery (SDC) | payer MEDICARE, MEDICAID, SELFPAY ==
[2024-07-12 09:54] VITALS: BMI 20.1
--- NOTE | 2024-07-28 12:00 | P.CONAN_ITS ---
Documented by User: Julianna Patel NP 07/28/24 12:00 HPI - Anesthesia Eval Consult details Narrative: 73yo F for Left Cataract Extraction IOL Insertion Right eye 07/17/24: Midaz 2 PMFSH Active Problems Active Problems: All Active Problems (Updated 07/12/24 @ 09:50 by Viji Moreland RN) Transaminitis (Acute) Pre-op exam (Acute) Cough (Acute) Pure hypercholesterolemia (Acute) Hypovitaminosis D (Acute) Poor balance (Acute) Interstitial cystitis (chronic) with hematuria (Acute) Encounter for vitamin deficiency screening (Acute) Urge incontinence (Acute) Microscopic hematuria (Acute) Nocturia more than twice per night (Acute) OAB (overactive bladder) (Acute) Well woman exam (Acute) Urinary incontinence (Acute) Osteoporosis (Acute) Past Medical History Medical History (Updated 07/12/24 @ 09:50 by Viji Moreland RN) Hypercholesteremia Cataracts, both eyes Urinary incontinence Osteoporosis Family History Family History Sister Ovarian cancer Father Diabetes mellitus Mother Diabetes mellitus Family history of problems with anesthesia: No Surgical History Surgical History (Updated 07/26/24 @ 14:01 by Viji Moreland RN) Hx of right cataract extraction (07/17/24) History of skin surgery Hx of colonoscopy (2009) History of Problems with Anesthesia: No Social History Social History Household Members: Family Housing: House Alcohol intake: never Patient Tobacco Use Status: Never used Tobacco e-Cigarette/Vaping Use: Never Used Second Hand Smoke Exposure: No Have you been hit, kicked, punched, or otherwise hurt by someone within the past year? If so, by whom?: No Are you DNR?: No Advance Directives: No Advance Directives Information Provided: Yes service: No Current occupational status: retired Sexual orientation: Straight/Heterosexual Gender identity: Female Cognitive needs: No Hearing needs: No Vision needs: Yes Meds Allergies Allergy/AdvReac Type Severity Reaction Status Date / Time Latex Gloves Allergy Intermediate edema Uncoded 07/06/24 09:46 Home Medications ?Medication ?Instructions ?Recorded ?Confirmed ?Last Taken ?Type calcium carbonate 600 mg PO DAILY 06/07/20 07/26/24 Unknown History cholecalciferol (vitamin D3) 25 25 mcg PO DAILY 06/07/20 07/26/24 Unknown History mcg (1,000 unit) capsule jedzjcpf-hvc-vhzyj acid 0.4 1 tab PO DAILY 06/07/20 07/26/24 Unknown History mg-lycopene 300 mcg-lutein 250 mcg tablet (Centrum Silver) denosumab 60 mg/mL subcutaneous 60 mg subcut [id number] 12/21/23 07/26/24 Unknown History syringe (Prolia) coenzyme Q10 200 mg capsule (Co 200 mg PO DAILY 07/05/24 07/26/24 Unknown History Q-10) Exam Height,Weight and Vital Signs: Height 5 ft 3 in Weight 51.369 kg Assessment and Plan Assessment Anesthesia Assessment: Chart Reviewed Final Anesthetic Review Family History of Problems with Anesthesia: No History of Problems with Anesthesia: No Documented by User: Dina Simon MD 07/31/24 09:02 [facility] Past Medical History Medical History (Updated 07/12/24 @ 09:50 by Viji Moreland, KYM) Hypercholesteremia Cataracts, both eyes Urinary incontinence Osteoporosis Family History Family History Sister Ovarian cancer Father Diabetes mellitus Mother Diabetes mellitus Surgical History Surgical History (Updated 07/26/24 @ 14:01 by Viji Moreland RN) Hx of right cataract extraction (07/17/24) History of skin surgery Hx of colonoscopy (2009) Social History Social History Household Members: Family Housing: House Alcohol intake: never Patient Tobacco Use Status: Never used Tobacco e-Cigarette/Vaping Use: Never Used Second Hand Smoke Exposure: No Have you been hit, kicked, punched, or otherwise hurt by someone within the past year? If so, by whom?: No Are you DNR?: No Advance Directives: No Advance Directives Information Provided: Yes service: No Current occupational status: retired Sexual orientation: Straight/Heterosexual Gender identity: Female Cognitive needs: No Hearing needs: No Vision needs: Yes Meds Allergies Allergy/AdvReac Type Severity Reaction Status Date / Time Latex Gloves Allergy Intermediate edema Uncoded 07/06/24 09:46 Home Medications ?Medication ?Instructions ?Recorded ?Confirmed ?Last Taken ?Type calcium carbonate 600 mg PO DAILY 06/07/20 07/26/24 Unknown History cholecalciferol (vitamin D3) 25 25 mcg PO DAILY 06/07/20 07/26/24 Unknown History mcg (1,000 unit) capsule vnqpgrst-utb-onabm acid 0.4 1 tab PO DAILY 06/07/20 07/26/24 Unknown History mg-lycopene 300 mcg-lutein 250 mcg tablet (Centrum Silver) denosumab 60 mg/mL subcutaneous 60 mg subcut [id number] 12/21/23 07/26/24 Unknown History syringe (Prolia) coenzyme Q10 200 mg capsule (Co 200 mg PO DAILY 07/05/24 07/26/24 Unknown History Q-10) Exam Airway Mallampati Class: II (multiple caps throughout) TM Dist: >3cm Neck ROM: Full Heart: rrr Lungs: cta Assessment and Plan Assessment Anesthesia Assessment: Anesthesia Plan Discussed Final Anesthetic Review NPO: Yes ASA Class: III Final Preanesthetic Review: No Changes in Pt Med Stat, Meds/Allgs Chart Reviewed and Consent Obtained/Reviewed Patient Risk: Low Procedure Risk: Low Anesthetic Plan Anesthetic Plan: MAC: Disposition: Standard PACU
[2024-07-31 08:25] VITALS: BP 129/86; PULSE 83; RESP 18; TEMP 36.9; O2SAT 97
[2024-07-31] MEDS: Cyclopentolate 1 % Ophth Sol 2 ML DRPBTL 1 DROP EYE-LEFT ×3 (08:37→08:38)
[2024-07-31] MEDS: Lactated Ringers 500 ML 50 ML IV (08:37)
[2024-07-31] MEDS: Tropicamide 1 % Ophth Sol 3 ML BTL 1 DROP EYE-LEFT ×3 (08:37→08:38)
[2024-07-31] MEDS: Phenylephrine HCL 2.5% Oph SoL 2 ML BOTTLE 1 DROP EYE-LEFT ×3 (08:37→08:39)
[2024-07-31] MEDS: Ketorolac Tromethamine 0.5% Op 5 ML DROPS 1 DROP EYE-LEFT ×2 (08:38)
--- NOTE | 2024-07-31 09:35 | MHC.SHP ---
Pre-Procedural Eval Section A - 24 Hr Update-Section A only Date of Service: 07/31/24 The patient is an INPATIENT: No Changes since office visit: No Cold of Flu in the past 2 weeks, No New Medical Problems, No Changes in Medication and No Patient answered all questions The patient has been examined within 24 hours of the surgical procedure. The History & Physical has been completed within 30 days and I have reviewed it.: Yes Section B - Complete if H&P > 30 days Chief Complaint: Age-related nuclear cataract, left eye Allergies: Allergies Allergy/AdvReac Type Severity Reaction Status Date / Time Latex Gloves Allergy Intermediate edema Uncoded 07/06/24 09:46 Plan Diagnosis/Plan: Unchanged I have reviewed the history and physical and performed a pertinent physical examination on my patient. No changes have occurred unless specified. Time Spent With Patient Time: Total time managing care of this patient today ____ minutes.
--- NOTE | 2024-07-31 09:35 | HO.PNOPHT ---
Ophthalmology Procedure Procedure Date of Service: 07/31/24 Ophthalmology Viscoelastic: Healon Duet Dual Pack Pro Ophthalmology Lenses: IOL Acrysof MP - [id number] (15.5) Procedure Notes: PREOPERATIVE DIAGNOSIS: Decreased visual acuity left eye secondary to cataract POSTOPERATIVE DIAGNOSIS: Same PROCEDURE: Left cataract extraction with intraocular lens insertion SURGEON: Garret Spence M.D. ANESTHESIA: Topical/MAC ESTIMATED BLOOD LOSS: None COMPLICATIONS: None After obtaining informed consent, the patient was brought to the operation room suite and placed in the supine position. After adequate sedation per anesthesia, topical drops of Tetracaine were given to the left eye. The eye was then prepped and draped in the usual sterile fashion. The operating room microscope was then positioned over the operative eye and a lid speculum placed. A paracentesis was created. Viscoelastic was then instilled into the anterior chamber. A three plane incision was then created temporally, utilizing a 2.85 mm keratome. Capsulotomy forceps were then utilized to create a circular tear capsulotomy. Hydrodissection and hydrodelineation were carried out until adequate mobilization of the nucleus occurred. Phacoemulsification was then utilized to remove the dense central nucleus followed by removal of the cortical material utilizing the automated aspiration irrigation unit. Viscoat elastic was instilled into the posterior capsular bag followed by placement of a posterior chamber intraocular lens without difficulty. The residual Viscoat elastic was then removed utilizing the automated IA machine. The wound was check and found to be watertight. The patient tolerated the procedure well and the lid speculum was removed. Intracameral injection of Vigamox 0.1 mL followed by a subtenon injection of Kenalog-40 0.2 mL were administered. The patient will be seen in the a.m.
[2024-07-31 10:03] VITALS: BP 153/61; PULSE 70; RESP 16; TEMP 36.6; O2SAT 99
== END 2024-07-31 10:11 | disposition home or self-care (01) ==
PROVIDERS: PCP Internal Medicine; Visit Provider Ophthalmology
PROC: (CPT 66985; principal; 2024-07-31 10:00)
DX: H25.12 Age-related nuclear cataract, left eye (principal); H52.4 Presbyopia; H18.413 Arcus senilis, bilateral; H04.123 Dry eye syndrome of bilateral lacrimal glands; M81.0 Age-related osteoporosis without current pathological fracture; E78.00 Pure hypercholesterolemia, unspecified; R32 Unspecified urinary incontinence; Z79.83 Long term (current) use of bisphosphonates; Z79.899 Other long term (current) drug therapy; Z91.040 Latex allergy status
CPT/HCPCS: 66984; J2250; J3301; V2630

== ENCOUNTER 2024-08-11 08:39 | Outpatient (AMB) | payer MEDICARE, MEDICAID, SELFPAY ==
--- OUTSIDE RECORDS SUMMARY | 2024-08-11 08:50 | XMS_ITS | Patient Health Record ---
Author Organization [facility] Address [address] [place] [address] Care Team Providers Care Tug Master Name Role Phone Jabier Santamaria MD Primary Care Provider Isaac Gutierrez Unavailable [phone] Reason For Referral No Information Plan Of Treatment No Information Insurance Providers Payer Name Payer Address Payer Phone Subscriber Number Group Number Insured Name Patient Relationship to Insured Coverage Start Date Coverage End Date MEDICARE OF [place] [address] [place] [phone] [id number] NEDA WEBB Self - patient is the insured MEDICAID OF [facility] [address] [place] [phone] [id number] NEDA WEBB Self - patient is the insured
--- NOTE | 2024-08-11 09:03 | AM.OFFVISNUR ---
Intake Visit Reasons: Osteoporosis/prolia inj Allergies Latex Gloves Allergy (Intermediate, Uncoded 07/06/24 09:46) edema Office Meds Prolia 60 mg/mL subcutaneous syringe Performing Provider: Pamela Mei MD Performing [place] [facility] [place] Administered by: Ely Raymundo RN on 08/11/24 09:03 Dose Route Admin Location Dispensed Lot Number Expiration Date NDC Drawing Checker 60 mg subcut right upper arm 1 mL [id number] 10/15/26 06247-180-34 AMGEN Total Dispensed Waste 1 mL 0 % Comments: Patient tolerated procedure well. Denies any reaction to previous injections. Assessment & Plan Assessment & Plan Orders: Orders AMB Denosumab Injection Practice Supplied Today M81.0 - Age-related osteoporosis without current pathological fracture Coding
== END 2024-08-11 09:45 | disposition home or self-care (01) ==
LOC: HO.RHE 08:39
PROVIDERS: PCP Internal Medicine; Visit Provider Student in an Organized Health Care Education/Training Program
DX: M81.0 Age-related osteoporosis without current pathological fracture (principal)

== ENCOUNTER → 2024-08-11 08:39 | Outpatient (BNVA) | payer MEDICARE, MEDICAID, SELFPAY | PROVIDERS: PCP Internal Medicine; Visit Provider Student in an Organized Health Care Education/Training Program | DX: M81.0 Age-related osteoporosis without current pathological fracture (principal) | CPT/HCPCS: 96372; J0897 ==

== ENCOUNTER 2024-08-31 10:32 | Outpatient (AMB) | payer MEDICARE, MEDICAID, SELFPAY ==
--- NOTE | 2024-08-31 10:38 | A.OFFVIS_ITS ---
Vital Signs 08/31/24 10:49 Height 5 ft 3 in Weight 113 lb 12.136 oz BMI 20.1 BP 142/60 H Blood Pressure Location Lt brachial Position Sitting Pulse 72 Pulse Source Pulse Oximeter Pulse Oximetry (%) 98 Oxygen Delivery Method Room Air Intake Visit Reasons: Osteoporosis Intake Note: Patient presents for Osteoporosis follow up. Allergies Latex Gloves Allergy (Intermediate, Uncoded 07/06/24 09:46) edema HPI Comments Details: Patient is a 73-year-old female with hyperlipidemia, overactive bladder and osteoporosis here today for follow up Interval History: Patient last seen 01/31/[address] Wadsworth - Doing well - C/o of poor balance but no significant falls Today, - Continues to do well - no new complaints or falls Rheumatologic History: Raloxifene: 2017-01/2019 Prolia: December 2018- present DEXA (12/2018) T score -3.3 in femoral neck. Current Rheumatology Medication(s): Prolia 60mg SC every 6 months [facility] Medical History (Updated 08/31/24 @ 11:20 by Pamela Mei MD) Hypercholesteremia Cataracts, both eyes Urinary incontinence Osteoporosis Surgical History Hx of right cataract extraction (07/17/24) History of skin surgery Hx of colonoscopy (2009) Family History Sister Ovarian cancer Father Diabetes mellitus Mother Diabetes mellitus Social History Household Members: Family Housing: House Alcohol intake: never Patient Tobacco Use Status: Never used Tobacco e-Cigarette/Vaping Use: Never Used Second Hand Smoke Exposure: No service: No Current occupational status: retired Sexual orientation: Straight/Heterosexual Gender identity: Female Cognitive needs: No Hearing needs: No Vision needs: Yes Female Reproductive History Menstrual Age of Menarche: 12 Review of Systems Const Details: Review of Systems Constitutional: Denies fever, chills, weight loss ENT: Denies vision changes, eye pain or eye redness, dental caries, dry mouth GI: Denies nausea, vomiting, diarrhea, abdominal pain, change in BM Pulm: Denies SOB, CORONADO, hemoptysis, wheezing Cards: Denies chest pain, palpitations Skin: Denies Raynaud's, rash, nail changes, photosensitivity, COMMERCIAL CONSTRUCTION SUPERINTENDENT: Denies headaches, weakness, paresthesias, recurrent falls MSK: as per HPI All other systems reviewed and are unremarkable except noted above Physical Exam Vital Signs: Last Vital Signs Pulse 72 08/31/24 10:49 BP 142/60 H 08/31/24 10:49 Pulse Ox 98 08/31/24 10:49 Oxygen Delivery Method Room Air 08/31/24 10:49 BMI result Body Mass Index 20.1 Vital signs reviewed Physical Examination CONSTITUITIONAL Patient alert and cooperative. Well appearing and in no apparent painful distress MSK Hands * Right Hand: Able to make a fist. No swelling or tenderness to palpation of these joints. * Left Hand: Able to make a fist. No swelling or tenderness to palpation of these joints. * Herbedens nodes noted bilaterally Wrists * Right Wrist: Full ROM. 70 degrees of wrist flexion, 80 degrees of wrist extension. No swelling or TTP * Left Wrist: Full ROM. 70 degrees of wrist flexion, 80 degrees of wrist extension. No swelling or TTP Elbows * Right Elbow: Full ROM. No swelling or TTP. No TTP of the medial and lateral epicondyles * Left Elbow: Full ROM. No swelling or TTP. No TTP of the medial and lateral epicondyles Shoulders * Right shoulder: Full ROM. No swelling noted. No TTP of the AC joint, subacromial bursa or posterior shoulder * Left shoulder: Full ROM. No swelling noted. No TTP of the AC joint, subacromial bursa or posterior shoulder Knees * Right knee: Full ROM. No swelling noted. No TTP of the knee joint lie or pes anserine bursa * Left knee: Full ROM. No swelling noted. No TTP of the knee joint lie or pes anserine bursa. Ankles * Right ankle: Good ankle dorsiflexion and plantar flexion. No swelling. No TTP of the ankle joint * Left ankle: Good ankle dorsiflexion and plantar flexion. No swelling. No TTP of the ankle joint Feet * Right foot: Negative squeeze test * Left foot: Negative squeeze test Tender points? * No tenderness to palpation of the bilateral trapezius, supraspinatus, anterior costochondral junctions, bilateral suboccipital muscle insertions SKIN No rashes Results Reviewed Results Reviewed: Laboratory Tests 07/06/24 07/24/24 10:54 06:23 WBC 6.0 RBC 3.80 L Hgb 12.3 Hct 37.5 Plt Count 220 Sodium 143 Potassium 3.9 Chloride 108 Carbon Dioxide 27 BUN 11 Creatinine 0.69 AST 26 ALT 23 Alkaline Phosphatase 62 25-OH Vitamin D Total 48 DEXA 06/2023 FINDINGS: LEFT FEMUR, NECK: Current: BMD 0.667 g/cm2, Z-score -0.6, T-score -2.7, osteoporosis. Prior: BMD 0.649 g/cm2. Baseline: BMD 0.714 g/cm2. LEFT FEMUR, TOTAL: Current: BMD 0.685 g/cm2, Z-score -0.7, T-score -2.6, osteoporosis, 4.7% increase from previous, 8.8% decrease from baseline (<5% change is not significant). Prior: BMD 0.654 g/cm2. Baseline: BMD 0.751 g/cm2. AP SPINE L1-L4: Current: BMD 0.878 g/cm2, Z-score -0.4, T-score -2.5, osteoporosis, 3.7% increase from previous, 6.2% decrease from baseline (<5% change is not significant). Prior: BMD 0.847 g/cm2. Baseline: BMD 0.936 g/cm2. Assessment & Plan Assessment & Plan (1) Osteoporosis: Comment: DEXA 06/2023. AP Spine -2.5, Left femur neck -2.7, Left femur total -2.6 DEXA 05/2021. AP Spine -2.8, Left femur neck -2.8, Left femur total -2.8 DEXA 2018. Left femur total -3.3 Raloxifene: 2017-01/2019 Prolia: December 2018- present Code(s): M81.0 - Age-related osteoporosis without current pathological fracture Category: Medical Qualifiers: Osteoporosis type: age-related Presence of current pathological fracture: without current pathological fracture Qualified Code(s): M81.0 - Age- related osteoporosis without current pathological fracture Plan: #Osteoporosis Patient is a 73 y.o. female with osteoporosis here today for follow up. DEXA improved from 2018 to 2023 Patient asked if there is a possibility of stopping prolia. I explained that stopping the Prolia is associated with rapid bone loss and that if we wanted to stop medication we would have to switch to oral bisphosphonates for 2 years then stop. However at this time given that she still meets criteria for osteoporosis, I think it is better to continue the prolia. Plan - Prolia 60mg SC every 6 months - Vit D supplementation - RTC 6 months - Labs before visit: CBC, CMP, ESR, CRP (2) Poor balance: Code(s): R26.89 - Other abnormalities of gait and mobility Category: Medical Plan: #Poor Balance Patient was also concerned about balance issues. She was worried that denosumab may have some side effects which may lead to poor balance. I reassured patient that denosumab does not have any known side effects associated with poor balance. And recommend that she follow up with her primary for this to be fully evaluated. (3) Encounter for monitoring denosumab therapy: Code(s): Z51.81 - Encounter for therapeutic drug level monitoring; Z79.620 - lobsterman (current) use of immunosuppressive biologic Plan: #Long-term use of Denosumab Discussed with patient the risks and benefits of denosumab (Prolia) for the management of their osteoporosis Benefits include improved bone density, decreased fracture risk Risks include rapid bone loss if denosumab stopped, osteonecrosis of the jaw especially in patients with poor oral hygiene/diabetes/use of glucocorticoids/age greater than 65 years, atypical femoral fractures, injection site reactions. Mild increased risk of infections due to RANKL on T helper cells, increased risk of hypocalcemia especially in CKD patients Keep vitamin-D at least 35 ng/mL Advised to delay non emergent dental procedures to toward the end of the 6 month cycle and if they plan to stop denosumab would need to continue antiresorptive to maintain the effects of denosumab Plan I spent 30 minutes reviewing the record and labs, taking a history, examining the patient, discussing the treatment plan, ordering diagnostic work up and documenting in the medical record Coding Level of Care Code Est Pt Level 4 (61327) Complex EM visit Add On G2211 Diagnoses Age-related osteoporosis without current pathological fracture M81.0 Osteoporosis type: age-related Presence of current pathological fracture: without current pathological fracture Poor balance R26.89 Encounter for monitoring denosumab therapy Z51.81; Z79.620
[2024-08-31 10:49] VITALS: BP 142/60; PULSE 72; O2SAT 98; BMI 20.1
--- OUTSIDE RECORDS SUMMARY | 2024-08-31 11:04 | XMS_ITS | Patient Health Record ---
Author Organization [facility] Address [address] [place] [address] Care Team Providers Care Gel Coater Name Role Phone Hina (RETIRED) Jabier MAYFIELD Primary Care Provide r Unavailable Isaac Burnham Unavailable [phone] Reason For Referral No Information Plan Of Treatment No Information Insurance Providers Payer Name Payer Address Payer Phone Subscriber Number Group Number Insured Name Patient Relationship to Insured Coverage Start Date Coverage End Date MED[place]ARE OF [place] [address] [place] [address] [id number] NEDA WEBB Self - patient is the insured MEDICAID OF [facility] [address] [place] [address] [phone] [id number] NEDA WEBB Self - patient is the insured
== END 2024-08-31 11:29 | disposition home or self-care (01) ==
LOC: HO.RHE 10:33
PROVIDERS: PCP Internal Medicine; Visit Provider Student in an Organized Health Care Education/Training Program
DX: M81.0 Age-related osteoporosis without current pathological fracture (principal); R26.89 Other abnormalities of gait and mobility; Z51.81 Encounter for therapeutic drug level monitoring; Z79.620 Long term (current) use of immunosuppressive biologic
CPT/HCPCS: 99214; G2211

== ENCOUNTER → 2024-08-31 10:32 | Outpatient (BNVA) | payer MEDICARE, MEDICAID, SELFPAY | PROVIDERS: PCP Internal Medicine; Visit Provider Student in an Organized Health Care Education/Training Program | DX: Z51.81 Encounter for therapeutic drug level monitoring (principal); M81.0 Age-related osteoporosis without current pathological fracture; R26.89 Other abnormalities of gait and mobility; Z79.620 Long term (current) use of immunosuppressive biologic | CPT/HCPCS: 99212 ==

== ENCOUNTER 2024-12-21 06:12 | Outpatient (REF) | payer MEDICARE, MEDICAID, SELFPAY ==
--- OUTSIDE RECORDS SUMMARY | 2024-12-21 06:14 | XMS_ITS | Patient Health Record ---
Author Organization [facility] Address [address] [place] [address] Care Team Providers Care Head Miller Name Role Phone Hina (RETIRED) Jabier MAYFIELD Primary Care Provide r Unavailable Isaac Burnham Unavailable [phone] Reason For Referral No Information Plan Of Treatment No Information Insurance Providers Payer Name Payer Address Payer Phone Subscriber Number Group Number Insured Name Patient Relationship to Insured Coverage Start Date Coverage End Date [place]ARE OF [place] [address] [place] [id number] NEDA WEBB Self - patient is the insured MEDICAID OF [facility] [address] [place] [address] [phone] [id number] NEDA WEBB Self - patient is the insured
[2024-12-21 07:55] LABS: Alanine Aminotransferase 21 U/L (0-31); Albumin Level 4.8 g/dL (3.5-5.0); Alkaline Phosphatase 70 U/L (39-117); Anion Gap 13 (12-20); Aspartate Amino Transferase 27 U/L (5-31); Blood Urea Nitrogen 11 mg/dL (9-16); Calcium 9.3 mg/dL (8.4-10.2); Carbon Dioxide 29 mmol/L (22-29); Chloride 104 mmol/L (96-108); Cholesterol 174 mg/dL (<200); Estimated Glomerular Filt Rate > 60; HDL Cholesterol 74 mg/dL (>40); Potassium 4.3 mmol/L (3.3-5.1); Sodium 142 mmol/L (135-145); Total Protein 7.7 g/dL (6.5-8.0); Triglycerides 115 mg/dL (<150)
== END 2024-12-21 06:13 | disposition home or self-care (01) ==
LOC: HO.LAB 06:12
PROVIDERS: Student in an Organized Health Care Education/Training Program; PCP Internal Medicine; Visit Provider Internal Medicine
DX: M81.0 Age-related osteoporosis without current pathological fracture (principal); E78.5 Hyperlipidemia, unspecified; Z79.899 Other long term (current) drug therapy
CPT/HCPCS: 36415; 80053; 80061; 82306

== ENCOUNTER 2025-01-08 07:30 | Outpatient (AMB) | payer MEDICARE, MEDICAID, SELFPAY ==
--- OUTSIDE RECORDS SUMMARY | 2025-01-08 07:33 | XMS_ITS | Patient Health Record ---
Author Organization [facility] Address [address] [place] [address] Care Team Providers Care Injection Molding Machine Offbearer Name Role Phone Hina (RETIRED) Jabier MAYFIELD Primary Care Provide r Unavailable Isaac Burnham Unavailable [phone] Reason For Referral No Information Plan Of Treatment No Information Insurance Providers Payer Name Payer Address Payer Phone Subscriber Number Group Number Insured Name Patient Relationship to Insured Coverage Start Date Coverage End Date [place]ARE OF [place] [address] [place] [address] [id number] NEDA WEBB Self - patient is the insured MEDICAID OF [facility] [address] [place] [address] [phone] [id number] NEDA WEBB Self - patient is the insured
[2025-01-08 08:01] VITALS: BP 128/68; PULSE 81; O2SAT 97; BMI 20.5
--- NOTE | 2025-01-08 08:01 | A.OFFPC_ITS ---
Vital Signs 01/08/25 08:01 Height 5 ft 3 in Weight 116 lb BMI 20.5 BP 128/68 Blood Pressure Location Lt brachial Position Sitting Pulse 81 Pulse Source Pulse Oximeter Pulse Oximetry (%) 97 Oxygen Delivery Method Room Air Intake Visit Reasons: lipids Hospital Product Specialist Required: No Accompanied by: Self / Same As Patient Allergies Latex Gloves Allergy (Intermediate, Uncoded 01/08/25 08:18) edema Medication List - Last Reconciled 01/08/25 by Oanh Soto MD benzonatate 100 mg PO BID 5 days calcium carbonate 600 mg PO DAILY cholecalciferol (vitamin D3) 25 mcg PO DAILY coenzyme Q10 (Co Q-10) 200 mg PO DAILY denosumab (Prolia) 60 mg subcut [id number] givixygx-dzx-KW-lycopen-lutein 0.4 mg-300 mcg- 250 mcg (Centrum Silver) 1 tab PO DAILY rosuvastatin 10 mg PO DAILY 90 days Tobacco use date assessed: 07/05/24 Fall risk assessment: No Falls in past year Last assessed Fall Risk: 01/08/25 Dental Screening Dental Screen Date: 07/05/24 HPI HPI Comments History of Present Illness Details The patient is a 74-year-old individual presenting for a follow-up on chronic conditions, including hyperlipidemia and osteoporosis. The patient takes rosuvastatin 10 mg for hyperlipidemia and has a family history of high cholesterol, with the patient's father having had high cholesterol levels. The patient's own cholesterol was elevated to 190 mg/dL in the patient's 30s. The patient's osteoporosis is managed by a body fitter with Prolia injections every six months. The patient also takes calcium with vitamin D and multivitamins. The last bone density scan was in 2023, and the next is due next year. The patient reports myalgia, described as sore thighs. The patient also reports poor balance, is considering using a cane, and has difficulty walking on non- flat surfaces. The patient requires assistance getting off the exam table due to feeling off balance. The patient had a fall recently but was uninjured. Regarding health maintenance, the patient's mammogram is up-to-date. The patient is overdue for a colonoscopy, with the last one having been approximately 10 years ago. The patient received an influenza vaccine this year. The patient reports an allergy to latex. Recent blood work from December 21 showed good kidney function, a glucose level of 87 mg/dL, and a total cholesterol of 174 mg/dL. The patient engages in physical activity, walking for half an hour every other day. [facility] Medical History Hypercholesteremia Cataracts, both eyes Urinary incontinence Osteoporosis Surgical History Hx of right cataract extraction (07/17/24) History of skin surgery Hx of colonoscopy (2009) Family History Sister Ovarian cancer Father Diabetes mellitus Mother Diabetes mellitus Social History Household Members: Family Housing: House Alcohol intake: never Patient Tobacco Use Status: Never used Tobacco Tobacco use type: Cigarette e-Cigarette/Vaping Use: Never Used Second Hand Smoke Exposure: No service: No Current occupational status: retired Sexual orientation: Straight/Heterosexual Gender identity: Female Cognitive needs: No Hearing needs: No Vision needs: Yes Female Reproductive History Menstrual Age of Menarche: 12 Questionnaire Thrive Questionnaire Date Thrive assessed: 07/05/24 I am a: Patient What is your living situation today?: I have a steady place to live Within the past 12 months, did the food you bought not last and you didn't have the money to get more?: Sometimes True Within the past 12 months, did you worry whether your food would run out before you got money to buy more?: Sometimes True Do you have trouble paying for medicines?: No Do you have trouble getting transportation to medical appointments?: No Do you have trouble paying your heating and electricity bill?: No Do you have trouble taking care of your child, family member or friend?: No Do you have trouble with day-to-day activities such as bathing, preparing meals, shopping, managing finances, etc.?: No Are you currently unemployed and looking for a job?: Yes Are you interested in more education?: No Please select the resources that you would like help with: None Currently or been in a relationship where the following occur: No concerns reported THRIVE Score: 2 BENJAMIN-7 AMB Questionnaire BENJAMIN-7 Date BENJAMIN - 7 assessed: 07/05/24 Source: Developed by Drs. Isaac Fish, Kimberley Wylie, Syed Davey and colleagues, with an educational selin from [employer]. Review of Systems Const All systems reviewed & are unremarkable except as noted in HPI and below Card Denies chest pain at rest, Denies chest pain with activity, Denies edema, Denies irregular heart rhythm, Denies claudication, Denies dyspnea, Denies dyspnea on exertion, Denies orthopnea, Denies paroxysmal nocturnal dyspnea and Denies slow heart rate Resp Denies cough, Denies dyspnea and Denies dyspnea on exertion GI Denies abdominal pain, Denies change in bowel habits, Denies excessive flatus, Denies nausea and Denies vomiting Physical exam (Primary Care) Vital Signs: Last Vital Signs Pulse 81 01/08/25 08:01 BP 128/68 01/08/25 08:01 Pulse Ox 97 01/08/25 08:01 Oxygen Delivery Method Room Air 01/08/25 08:01 BMI result Body Mass Index 20.5 Tobacco/Smoking Status: Tobacco use Status Tobacco use date assessed 07/05/24 01/08/25 08:03 Patient Tobacco Use Status Never used Tobacco 01/08/25 08:03 Tobacco use type Cigarette 01/08/25 08:03 e-Cigarette/Vaping Use Never Used 01/08/25 08:03 Thrive Assessment: Date of Thrive Assessment Date Thrive assessed 07/05/24 01/08/25 08:03 Currently or been in a relationship where the following occur: No concerns reported Resp Effort & Inspection: normal respiratory effort Auscultation: clear to auscultation bilaterally Cardio Jugular venous distension: no JVD Rate: regular rate Rhythm: regular rhythm Heart sounds: S1 normal heart sound present and S2 normal heart sound present Extrem General: Yes full ROM Immunizations pneumoc 20-darlene conj-dip cr(PF) 0.5 mL IM syringe Performing Provider: Oanh Soto MD [facility] Administered by: TEVIN West on 01/08/25 08:41 Dose Route Admin Location Dispensed Lot Number Expiration Date [facility] [place] [employer] Planner 0.5 mL IM Left Deltoid 0.5 mL [id number] 10/16/25 [employer] /[employer] Total Dispensed Waste 0.5 mL 0 % VIS Given Date VIS Provided VIS Publication Date 01/08/25 Single Vaccine 24 Eligibility Eligibility Date Funding Source Not [facility] Eligible 01/08/25 Private Coding Level of Care Code Est Pt Level 3 (73454) Diagnoses Pure hypercholesterolemia E78.00 Age-related osteoporosis without current pathological fracture M81.0 Osteoporosis type: age-related Presence of current pathological fracture: without current pathological fracture Time Spent (min) 19 Assessment & Plan Assessment & Plan (1) Pure hypercholesterolemia: Code(s): E78.00 - Pure hypercholesterolemia, unspecified Category: Medical (2) Osteoporosis: Comment: DEXA 06/2023. AP Spine -2.5, Left femur neck -2.7, Left femur total -2.6 DEXA 05/2021. AP Spine -2.8, Left femur neck -2.8, Left femur total -2.8 DEXA 2018. Left femur total -3.3 Raloxifene: 2017-01/2019 Prolia: December 2018- present Code(s): M81.0 - Age-related osteoporosis without current pathological fracture Category: Medical Qualifiers: Osteoporosis type: age-related Presence of current pathological fracture: without current pathological fracture Qualified Code(s): M81.0 - Age- related osteoporosis without current pathological fracture Plan Plan 1. Hyperlipidemia The patient's recent total cholesterol of 174 is excellent. The patient will continue the current regimen of rosuvastatin 10 mg daily. Plan to repeat blood work in six months to monitor. 2. Osteoporosis The patient is followed by a body fitter and receives Prolia every six months, which will be continued. The patient will also continue supplementation with calcium with vitamin D and a multivitamin. The next bone density scan is s cheduled for next year. 3. Gait Instability The patient reports poor balance and difficulty on uneven surfaces. Physical therapy for balance was offered but the patient declined at this time. Will continue to monitor the patient's symptoms and have advised the patient to consider using a cane. 4. Health Maintenance The patient is overdue for a colonoscopy. The patient has deferred a referral for now and will provide notification when ready to proceed. The patient has agreed to and will receive a pneumonia vaccine today. A follow-up visit is scheduled in six months for reassessment and repeat lab work. Orders: Orders Lipid Panel 6 Months E78.5 - Hyperlipidemia, unspecified Vitamin D 25-OH Total 6 Months E55.9 - Vitamin D deficiency, unspecified Comprehensive [place]. Panel Fast 6 Months E78.00 - Pure hypercholesterolemia, unspecified Pneumococcal 20 Immunization Today Z23 - Encounter for immunization Medications: Changed From calcium carbonate 600 mg PO DAILY To calcium carbonate 600 mg PO DAILY 90 tabs 1RF 90 days From cholecalciferol (vitamin D3) 25 mcg PO DAILY To cholecalciferol (vitamin D3) 25 mcg PO DAILY 90 caps 1RF 90 days Refilled rosuvastatin 10 mg PO DAILY 90 tabs 1RF 90 days
== END 2025-01-08 08:43 | disposition home or self-care (01) ==
LOC: HO.HMCH 07:31
PROVIDERS: PCP Internal Medicine; Visit Provider Internal Medicine
DX: E78.00 Pure hypercholesterolemia, unspecified (principal); M81.0 Age-related osteoporosis without current pathological fracture; Z23 Encounter for immunization

== ENCOUNTER → 2025-01-08 07:30 | Outpatient (BNVA) | payer MEDICARE, MEDICAID, SELFPAY | PROVIDERS: PCP Internal Medicine; Visit Provider Internal Medicine | DX: M81.0 Age-related osteoporosis without current pathological fracture (principal); E78.00 Pure hypercholesterolemia, unspecified; Z23 Encounter for immunization; E55.9 Vitamin D deficiency, unspecified; E78.5 Hyperlipidemia, unspecified | CPT/HCPCS: 90471; 90677; 99212 ==

== ENCOUNTER 2025-01-09 07:27 | Outpatient (REF) | payer MEDICARE, MEDICAID, SELFPAY ==
--- NOTE | ~2025-01-09 | MM_ITS ---
EXAMINATION: MM SCREENING DIGITAL BREAST TOMOSYNTHESIS, BILATERAL CLINICAL INFORMATION: Screening. Asymptomatic. COMPARISON: Comparison made to multiple prior, most recent January 04, 2024, and most remote June 26, 2019. TECHNIQUE: Digital breast tomosynthesis is performed in mediolateral oblique and craniocaudal views along with computer-aided detection (CAD). Synthesized 2D images are generated from the tomosynthesis. Best possible images according to technologist notes. FINDINGS: BREAST COMPOSITION: The breasts are heterogeneously dense, which may obscure small masses. BILATERAL BREASTS: No significant masses, suspicious calcifications or other abnormalities are seen in either breast. MM/MM tomosynthesis screening BI IMPRESSION: BILATERAL BREASTS: Negative, no mammographic evidence of malignancy. Normal interval follow-up is recommended in 12 months. ASSESSMENT: BI-RADS: Category 1: Negative RECOMMENDATION: Routine annual mammography screening. FOLLOW-UP: 1 year F/U This examination should not preclude the clinical evaluation of a suspicious palpable abnormality. This patient's information was entered into a reminder system with a target due date for their next mammogram. Electronically signed by: Rao Duff MD 01/09/2025 06:41 PM [facility]
--- OUTSIDE RECORDS SUMMARY | 2025-01-09 07:30 | XMS_ITS | Patient Health Record ---
Author Organization [facility] Address [address] [place] [address] Care Team Providers Care Security Guard Name Role Phone Hina (RETIRED) Jabier MAYFIELD Primary Care Provide r Unavailable Isaac Burnham Unavailable [phone] Reason For Referral No Information Plan Of Treatment No Information Insurance Providers Payer Name Payer Address Payer Phone Subscriber Number Group Number Insured Name Patient Relationship to Insured Coverage Start Date Coverage End Date MEDICARE OF [place] [address] [place] [id number] NEDA WEBB Self - patient is the insured MEDICAID OF [facility] [address] [place] [address] [phone] [id number] NEDA WEBB Self - patient is the insured
== END 2025-01-09 07:28 | disposition home or self-care (01) ==
LOC: HO.MAMMO 07:27
PROVIDERS: PCP Internal Medicine; Visit Provider Internal Medicine
DX: Z12.31 Encounter for screening mammogram for malignant neoplasm of breast (principal)
CPT/HCPCS: 77063; 77067

== ENCOUNTER → 2025-01-09 07:30 | Outpatient (BNV) | payer MEDICARE, MEDICAID, SELFPAY | PROVIDERS: PCP Internal Medicine; Visit Provider Radiology Body Imaging | DX: Z12.31 Encounter for screening mammogram for malignant neoplasm of breast (principal) | CPT/HCPCS: 77063; 77067 ==

== ENCOUNTER 2025-01-16 06:08 | Outpatient (REF) | payer MEDICARE, MEDICAID, SELFPAY ==
[2025-01-16 07:40] LABS: Estimated Glomerular Filt Rate > 60
== END 2025-01-16 06:09 | disposition home or self-care (01) ==
LOC: HO.LAB 06:08
PROVIDERS: PCP Internal Medicine; Visit Provider Student in an Organized Health Care Education/Training Program
DX: E55.9 Vitamin D deficiency, unspecified (principal); Z79.899 Other long term (current) drug therapy
CPT/HCPCS: 36415; 82306; 82565